=== PATIENT | female | born 1980 | race Caucasian/White ===

== ENCOUNTER 2020-05-22 17:32 | Emergency (ER) | payer MEDICAID ==
[2020-05-22 18:54] VITALS: BP 129/71; PULSE 69
--- NOTE | 2020-05-26 11:54 | EDM.PDOC ---
ED HPI GENERAL MEDICAL PROBLEM - General Chief Complaint: [employer] Problem Stated Complaint: POSSIBLE MISCARRIAGE Time Seen by Provider: 05/22/20 17:35 Source of Information: Reports: Patient History Limitations: Reports: No Limitations - History of Present Illness INITIAL COMMENTS - FREE TEXT/NARRATIVE: I did not see or evaluate this patient lower abdomen Pain Score (Numeric/FACES): 3 - Related Data Allergies Allergy/AdvReac Type Severity Reaction Status Date / Time meperidine HCl [From Demerol] Allergy Fever Verified 05/22/20 18:55 naproxen Allergy Rash Verified 05/22/20 18:55 sumatriptan [From Imitrex] Allergy Anaphylactic Verified 05/22/20 18:55 Shock sumatriptan succinate Allergy Anaphylactic Verified 05/22/20 18:55 [From Imitrex] Shock Home Meds: Home Meds Sertraline HCl [Zoloft] 200 mg PO BEDTIME 04/11/14 [History] Buprenorphine HCl/Naloxone HCl [Suboxone 4 mg-1 mg Sl Film] 05/22/20 [History] Past Medical History - Past Health History Medical/Surgical History: Denies Medical/Surgical History Other HEENT History: Bad teeth Other Respiratory History: Reports 17 yr history of smoking cigarettes, current use 1/2 pack per day Other Gastrointestinal History: Heartburn in late treat with chewable TUMS 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- section and exploratory laproscopic Other Musculoskeletal History: Chronic low back pain, "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" Psychiatric History: Reports: Addiction Other Psychiatric History: Dependence on pain medications/opiates Other Dermatologic History: Excision of area to back 'melanoma' age 11 yrs - Infectious Disease History Infectious Disease History: Reports: Chicken Pox - Past Surgical History Other HEENT Surgeries/Procedures: T & A age 7-8 yrs Female Surgical History: Reports: Section Other Female Surgeries/Procedures: Cryo therapy of cervix, Exploratory Laparoscopic surgery and 'ended up with incision", could not report what was done with this surgery - 3 yrs ago Social & Family History - Family History Family Medical History: Noncontributory - Tobacco Use Smoking Status *Q: Current Every Day Smoker Years of Tobacco use: 17 Packs/Tins Daily: 0.5 - Recreational Drug Use Recreational Drug Use: No ED ROS GENERAL - Review of Systems Review Of Systems: See Below (I did not see/evaluate patient) ED EXAM, GENERAL - Physical Exam Exam: See Below (I did not see/evaluate patient) Course - Vital Signs Last Recorded V/S: Last Vital Signs Temp 97.7 F 05/22/20 18:51 Pulse 69 05/22/20 18:51 Resp 18 05/22/20 18:51 BP 129/71 05/22/20 18:51 Pulse Ox 92 L 05/22/20 18:51 - Orders/Labs/Meds Labs: Laboratory Tests 05/22/20 05/22/20 Range/Units 18:18 18:18 Urine Color BROWN Urine Appearance CLOUDY Urine pH 7.0 (5.0-8.0) Ur Specific [place] 1.025 (1.001-1.035) Urine Protein 30 H (NEGATIVE) mg/dL Urine Glucose (UA) NEGATIVE (NEGATIVE) mg/dL Urine Ketones NEGATIVE (NEGATIVE) mg/dL Urine Occult Blood LARGE H (NEGATIVE) Urine Nitrite NEGATIVE (NEGATIVE) Urine Bilirubin NEGATIVE (NEGATIVE) Urine Urobilinogen 1.0 (<2.0) EU/dL Ur Leukocyte Esterase NEGATIVE (NEGATIVE) Urine RBC TOO NUMEROUS TO CT H (0-2/HPF) Urine WBC 1-2 (0-5/HPF) Ur Epithelial Cells FEW (NONE-FEW) Urine Bacteria FEW (NEGATIVE) Urine Mucus LIGHT (NONE-MOD) Urine HCG, Qual NEGATIVE (NEGATIVE) Departure - Departure Time of Disposition: 11:53 Disposition: Against Medical Advice 07 Clinical Impression: Left against medical advice - Discharge Information Referrals: Moisés Mars DO [Primary Care Provider] - Forms: ED Department Discharge Additional Instructions: I did not see/evaluate patient Sepsis Event Note (ED) - Evaluation Sepsis Screening Result: No Definite Risk
== END 2020-05-22 20:09 | disposition left against medical advice (07) ==
LOC: MW.ED 17:32
DX: R10.30 Lower abdominal pain, unspecified (principal); Z53.20 Procedure and treatment not carried out because of patient's decision for unspecified reasons; F17.210 Nicotine dependence, cigarettes, uncomplicated; Z88.8 Allergy status to other drugs, medicaments and biological substances; Z88.5 Allergy status to narcotic agent
CPT/HCPCS: 81001; 81025; 99284

== ENCOUNTER 2021-03-03 02:50 | Observation (INO) | payer MEDICAID ==
[2021-03-03] MEDS ORDERED: Sodium Chloride 0.9% 2.5 ML Syringe FLUSH PRN (02:52)
[2021-03-03] MEDS ORDERED: Sodium Chloride 0.9% 10 ML Syringe FLUSH PRN (02:52)
[2021-03-03] MEDS ORDERED: Tranexamic Acid 1,000 MG in Sodium Chloride 0.9% 100 ML IV ONE (03:03)
--- NOTE | 2021-03-03 03:03 | EDM.PDOC ---
ED HPI GENERAL MEDICAL PROBLEM - General Chief Complaint: Abdominal Pain Stated Complaint: POSSIBLE MISCARRIAGE Time Seen by Provider: 03/03/21 02:52 Source of Information: Reports: Patient History Limitations: Reports: No Limitations - History of Present Illness INITIAL COMMENTS - FREE TEXT/NARRATIVE: 40-year-old female presents for heavy vaginal bleeding. Patient is uncertain if she is and notes that her last menstrual cycle was January 19 but she does have a history of irregular menses. She has been 7 times and has 3 children. She notes that symptoms started this evening with gushing bright red blood per vagina. She feels weak, dizzy, lightheaded. She denies any associated abdominal pain. EMS reports that PD on scene thinks that they saw a fetus in the toilet. Patient reports nausea but no vomiting. She did get 1 g of TXA by EMS. She also got IM Zofran. - Related Data Allergies Allergy/AdvReac Type Severity Reaction Status Date / Time codeine Allergy Mild Nausea Verified 03/03/21 02:53 meperidine HCl [From Demerol] Allergy Fever Verified 05/22/20 18:55 naproxen Allergy Rash Verified 05/22/20 18:55 sumatriptan [From Imitrex] Allergy Anaphylactic Verified 05/22/20 18:55 Shock sumatriptan succinate Allergy Anaphylactic Verified 05/22/20 18:55 [From Imitrex] Shock Home Meds: Home Meds Sertraline HCl [Zoloft] 200 mg PO BEDTIME 04/11/14 [History] Buprenorphine HCl/Naloxone HCl [Suboxone 4 mg-1 mg Sl Film] 05/22/20 [History] Past Medical History - Past Health History Medical/Surgical History: Denies Medical/Surgical History Other HEENT History: Bad teeth Other Respiratory History: Reports 17 yr history of smoking cigarettes, current use 1/2 pack per day Other Gastrointestinal History: Heartburn in late treat with chewable TUMS 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: C- section and exploratory laproscopic Other Musculoskeletal History: Chronic low back pain, "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" Psychiatric History: Reports: Addiction Other Psychiatric History: Dependence on pain medications/opiates Other Dermatologic History: Excision of area to back 'melanoma' age 11 yrs - Infectious Disease History Infectious Disease History: Reports: Chicken Pox - Past Surgical History Other HEENT Surgeries/Procedures: T & A age 7-8 yrs Female Surgical History: Reports: Section Other Female Surgeries/Procedures: Cryo therapy of cervix, Exploratory Laparoscopic surgery and 'ended up with incision", could not report what was done with this surgery - 3 yrs ago Social & Family History - Family History Family Medical History: No Pertinent Family History ED ROS GENERAL - Review of Systems Review Of Systems: Comprehensive ROS is negative, except as noted in HPI. ED EXAM, GENERAL - Physical Exam Exam: See Below Exam Limited By: No Limitations General Appearance: Alert, WD/WN, No Apparent Distress Ears: Hearing Grossly Normal Throat/Mouth: Normal Voice, No Airway Compromise Head: Atraumatic, Normocephalic Neck: Normal Inspection Respiratory/Chest: No Respiratory Distress, Lungs Clear, Normal Breath Sounds, No Accessory Muscle Use Cardiovascular: Normal Peripheral Pulses, Regular Rate, Rhythm GI/Abdominal: Soft, Non-Tender Extremities: Normal Inspection Neurological: Alert, Oriented, Normal Cognition Psychiatric: Normal Affect, Normal Mood Skin Exam: Warm, Dry, Intact, Other (pale) Course - Vital Signs Last Recorded V/S: Last Vital Signs Temp 97.5 F 03/03/21 02:53 Pulse 96 03/03/21 03:50 Resp 18 03/03/21 03:50 BP 101/60 03/03/21 03:50 Pulse Ox 95 03/03/21 03:50 - Orders/Labs/Meds Orders: Active Orders 24 hr Category Date Time Status Verify Patient Consent Obtain [RC] ASDIRECTED Care 03/03/21 03:37 Active OB 1st Tri Sgl 1st Gest [US] Stat Exams 03/03/21 03:08 Ordered COMPREHENSIVE METABOLIC PN,CMP [CHEM] Stat Lab 03/03/21 02:58 Received CORONAVIRUS COVID-19 DANA [MOLEC] Stat Lab 03/03/21 03:20 Received DRUG SCREEN, URINE [URCHEM] Stat Lab 03/03/21 03:55 Ordered HCG QUANTITATIVE [CHEM] Stat Lab 03/03/21 02:58 Received RED BLOOD CELLS LP [BBK] Stat Lab 03/03/21 03:02 Results TYPE AND SCREEN [BBK] Stat Lab 03/03/21 03:02 Results UA W/HORACE RFLX IF INDICATED [URIN] Stat Lab 03/03/21 03:34 Ordered Sodium Chloride 0.9% [Normal Saline] 1,000 ml Med 03/03/21 03:21 Active IV .Bolus Sodium Chloride 0.9% [Saline Flush] Med 03/03/21 02:52 Active 10 ml FLUSH ASDIRECTED PRN Sodium Chloride 0.9% [Saline Flush] Med 03/03/21 02:52 Active 2.5 ml FLUSH ASDIRECTED PRN Tranexamic Acid [Cyklokapron] 1,000 mg Med 03/03/21 03:03 Active Sodium Chloride 0.9% [Normal Saline] 100 ml IV ONETIME Saline Lock Insert [OM.PC] Stat Ot 03/03/21 02:52 Ordered Transfuse Red Blood Cells [COMM] Stat Ot 03/03/21 03:36 Ordered Medication Orders Tranexamic Acid 1,000 mg/ (Sodium Chloride) 110 mls @ 12.5 mls/hr IV ONETIME ONE Stop: 03/03/21 11:50 Last Admin: 03/03/21 03:18 Dose: 12.5 mls/hr Documented by: COOPER Sodium Chloride (Normal Saline) 1,000 mls @ 999 mls/hr IV .Bolus ONE Stop: 03/03/21 04:21 Last Admin: 03/03/21 03:22 Dose: 999 mls/hr Documented by: COOPER Sodium Chloride (Sodium Chloride 0.9% 10 Ml Syringe) 10 ml FLUSH ASDIRECTED PRN PRN Reason: Keep Vein Open Sodium Chloride (Sodium Chloride 0.9% 2.5 Ml Syringe) 2.5 ml FLUSH ASDIRECTED PRN PRN Reason: Keep Vein Open Labs: Laboratory Tests 03/03/21 03/03/21 03/03/21 Range/Units 02:40 02:58 02:58 WBC 18.32 H (4.0-11.0) K/uL RBC 3.32 L (4.30-5.90) M/uL Hgb 9.0 L (12.0-16.0) g/dL Hct 27.6 L (36.0-46.0) % MCV 83.1 (80.0-98.0) fL MCH 27.1 (27.0-32.0) pg MCHC 32.6 (31.0-37.0) g/dL RDW Std Deviation 43.6 (28.0-62.0) fl RDW Coeff of Dalia 14 (11.0-15.0) % Plt Count 344 (150-400) K/uL MPV 10.10 (7.40-12.00) fL Neut % (Auto) 82.5 H (48.0-80.0) % Lymph % (Auto) 10.4 L (16.0-40.0) % [place] % (Auto) 6.4 (0.0-15.0) % Eos % (Auto) 0.5 (0.0-7.0) % Baso % (Auto) 0.2 (0.0-1.5) % Neut # (Auto) 15.1 H (1.4-5.7) K/uL Lymph # (Auto) 1.9 (0.6-2.4) K/uL [place] # (Auto) 1.2 H (0.0-0.8) K/uL Eos # (Auto) 0.1 (0.0-0.7) K/uL Baso # (Auto) 0.0 (0.0-0.1) K/uL Nucleated RBC % 0.0 /100WBC Nucleated RBCs # 0 K/uL INR 1.02 APTT 20.1 (18.6-31.3) SEC Urine Color Cancelled Urine Appearance Cancelled Urine pH Cancelled Ur Specific [place] Cancelled Urine Protein Cancelled Urine Glucose (UA) Cancelled Urine Ketones Cancelled Urine Occult Blood Cancelled Urine Nitrite Cancelled Urine Bilirubin Cancelled Urine Ictotest Cancelled Urine Urobilinogen Cancelled Ur Leukocyte Esterase Cancelled Blood Type Antibody Screen Crossmatch 03/03/21 Range/Units 03:02 WBC (4.0-11.0) K/uL RBC (4.30-5.90) M/uL Hgb (12.0-16.0) g/dL Hct (36.0-46.0) % MCV (80.0-98.0) fL MCH (27.0-32.0) pg MCHC (31.0-37.0) g/dL RDW Std Deviation (28.0-62.0) fl RDW Coeff of Dalia (11.0-15.0) % Plt Count (150-400) K/uL MPV (7.40-12.00) fL Neut % (Auto) (48.0-80.0) % Lymph % (Auto) (16.0-40.0) % [place] % (Auto) (0.0-15.0) % Eos % (Auto) (0.0-7.0) % Baso % (Auto) (0.0-1.5) % Neut # (Auto) (1.4-5.7) K/uL Lymph # (Auto) (0.6-2.4) K/uL [place] # (Auto) (0.0-0.8) K/uL Eos # (Auto) (0.0-0.7) K/uL Baso # (Auto) (0.0-0.1) K/uL Nucleated RBC % /100WBC Nucleated RBCs # K/uL INR APTT (18.6-31.3) SEC Urine Color Urine Appearance Urine pH Ur Specific [place] Urine Protein Urine Glucose (UA) Urine Ketones Urine Occult Blood Urine Nitrite Urine Bilirubin Urine Ictotest Urine Urobilinogen Ur Leukocyte Esterase Blood Type O POSITIVE Antibody Screen NEGATIVE Crossmatch See Detail Meds: Medications Generic Name Dose Route Start Last Admin Trade Name Freq PRN Reason Stop Dose Admin Tranexamic Acid 1,000 mg/ 110 mls @ 12.5 mls/hr 03/03/21 03:03 03/03/21 03:18 Sodium Chloride IV 03/03/21 11:50 12.5 mls/hr ONETIME ONE Administration Sodium Chloride 1,000 mls @ 999 mls/hr 03/03/21 03:21 03/03/21 03:22 Normal Saline IV 03/03/21 04:21 999 mls/hr .Bolus ONE Administration Sodium Chloride 10 ml 03/03/21 02:52 Sodium Chloride 0.9% 10 Ml Syringe FLUSH ASDIRECTED PRN Keep Vein Open Sodium Chloride 2.5 ml 03/03/21 02:52 Sodium Chloride 0.9% 2.5 Ml Syringe FLUSH ASDIRECTED PRN Keep Vein Open Discontinued Medications Generic Name Dose Route Start Last Admin Trade Name Freq PRN Reason Stop Dose Admin Methylergonovine Maleate 0.2 mg 03/03/21 03:44 03/03/21 03:48 Methylergonovine 0.2 Mg/1 Ml Amp IM 03/03/21 03:45 0.2 mg STAT STA Administration Methylergonovine Maleate Confirm 03/03/21 03:45 03/03/21 03:48 Methylergonovine 0.2 Mg/1 Ml Amp Administered 03/03/21 03:46 Not Given Dose 0.2 mg .ROUTE .STK-MED ONE Tranexamic Acid Confirm 03/03/21 03:11 03/03/21 03:20 Tranexamic Acid 1,000 Mg/10 Ml Amp Administered 03/03/21 03:12 Not Given Dose 1,000 mg .ROUTE .STK-MED ONE - Re-Assessments/Exams Free Text/Narrative Re-Assessment/Exam: 03/03/21 03:05 Patient symptoms are most consistent with miscarriage with heavy vaginal bleeding. Will give TXA drip following the bolus given by EMS. Will check beta hCG level and order ultrasound. 03/03/21 03:28 EMS second crew did bring in a fetus weighing approximately 1-kg which they found in the toilet. I also spoke with Dr. Farmer who will see patient in ER. She would like ultrasound called in 03/03/21 03:38 Heart rate is 108, blood pressure is lower than arrival 90s over 50s. Patient is continuing to hemorrhage so 2 units of blood have been ordered. 03/03/21 03:55 Dr. Armenta has evaluated patient and believes patient needs operative intervention. Patient is agreeable with plan. Blood is ready in about to be hung. Patient did get Methergine IM. Estimated age roughly 21 to 22 weeks, male. This has been reported to [facility] by powerhouse engineer. Departure - Departure Time of Disposition: 03:57 Disposition: Admitted As Inpatient 68 Condition: Fair Clinical Impression: hemorrhage Qualifiers: hemorrhage type: unspecified Qualified Code(s): O72.1 - Other immediate hemorrhage - Discharge Information Referrals: PCP,None [Primary Care Provider] - Forms: ED Department Discharge Critical Care Note - Critical Care Note Total Time (mins): 40 Sepsis Event Note (ED) - Evaluation Sepsis Screening Result: No Definite Risk - Focused Exam Vital Signs: Vital Signs Temp Pulse Resp BP Pulse Ox 03/03/21 03:50 96 18 101/60 95 03/03/21 03:35 93 18 99/56 L 95 03/03/21 03:20 94 18 97/49 L 95 03/03/21 02:53 97.5 F 97 20 102/63 96 - My Orders Last 24 Hours: My Active Orders 03/03/21 02:52 Sodium Chloride 0.9% [Saline Flush] 10 ml FLUSH ASDIRECTED PRN Sodium Chloride 0.9% [Saline Flush] 2.5 ml FLUSH ASDIRECTED PRN Saline Lock Insert [OM.PC] Stat 03/03/21 02:58 COMPREHENSIVE METABOLIC PN,CMP [CHEM] Stat HCG QUANTITATIVE [CHEM] Stat 03/03/21 03:02 RED BLOOD CELLS LP [BBK] Stat TYPE AND SCREEN [BBK] Stat 03/03/21 03:03 Tranexamic Acid [Cyklokapron] 1,000 mg Sodium Chloride 0.9% [Normal Saline] 100 ml IV ONETIME 03/03/21 03:08 OB 1st Tri Sgl 1st Gest [US] Stat 03/03/21 03:20 CORONAVIRUS COVID-19 DANA [MOLEC] Stat 03/03/21 03:21 Sodium Chloride 0.9% [Normal Saline] 1,000 ml IV .Bolus 03/03/21 03:34 UA W/HORACE RFLX IF INDICATED [URIN] Stat 03/03/21 03:36 Transfuse Red Blood Cells [COMM] Stat 03/03/21 03:37 Verify Patient Consent Obtain [RC] ASDIRECTED 03/03/21 03:55 DRUG SCREEN, URINE [URCHEM] Stat - Assessment/Plan Last 24 Hours: My Active Orders 03/03/21 02:52 Sodium Chloride 0.9% [Saline Flush] 10 ml FLUSH ASDIRECTED PRN Sodium Chloride 0.9% [Saline Flush] 2.5 ml FLUSH ASDIRECTED PRN Saline Lock Insert [OM.PC] Stat 03/03/21 02:58 COMPREHENSIVE METABOLIC PN,CMP [CHEM] Stat HCG QUANTITATIVE [CHEM] Stat 03/03/21 03:02 RED BLOOD CELLS LP [BBK] Stat TYPE AND SCREEN [BBK] Stat 03/03/21 03:03 Tranexamic Acid [Cyklokapron] 1,000 mg Sodium Chloride 0.9% [Normal Saline] 100 ml IV ONETIME 03/03/21 03:08 OB 1st Tri Sgl 1st Gest [US] Stat 03/03/21 03:20 CORONAVIRUS COVID-19 DANA [MOLEC] Stat 03/03/21 03:21 Sodium Chloride 0.9% [Normal Saline] 1,000 ml IV .Bolus 03/03/21 03:34 UA W/HORACE RFLX IF INDICATED [URIN] Stat 03/03/21 03:36 Transfuse Red Blood Cells [COMM] Stat 03/03/21 03:37 Verify Patient Consent Obtain [RC] ASDIRECTED 03/03/21 03:55 DRUG SCREEN, URINE [URCHEM] Stat
[2021-03-03] MEDS ORDERED: Sodium Chloride 0.9% 1,000 ML IV ONE (03:21)
[2021-03-03] MEDS ORDERED: Methylergonovine 0.2 MG/1 ML Amp IM STA (03:44)
[2021-03-03] MEDS ORDERED: Methylergonovine 0.2 MG/1 ML Amp ONE (03:45)
[2021-03-03 03:51] LABS: BLOOD UREA NITROGEN,BUN 8 mg/dL (7.0-18.0); CARBON DIOXIDE,CO2 27.3 mmol/L (21.0-32.0); CHLORIDE,CL 100 mmol/L (98-107); GLUCOSE RANDOM 166 mg/dL (74-106); POTASSIUM,K 3.1 mmol/L (3.5-5.1); SODIUM,NA 137 mmol/L (136-145)
--- NOTE | 2021-03-03 04:10 | PCM.HP.2 ---
H&P History of Present Illness - General Date of Service: 03/03/21 Admit Problem/Dx: Admission Diagnosis/Problem Admission Diagnosis/Problem hemorrhage Source of Information: Patient History Limitations: Reports: No Limitations - History of Present Illness Initial Comments - Free Text/Narative: 40 year old female was transferred to [facility] ED this morning due to heavy vaginal bleeding after miscarriage. Patient unsure of LMP, states possibly in early December. Has not taken a home test or establish care with an OBGYN. States that she started bleeding at about 0100 this morning and called EMS shortly thereafter as the bleeding increased. Upon arrival, EMS noted a stillborn infant within the toilet and transferred both the patient and to the hospital. Bleeding has continued since arrival to the ED. Hgb 9.0 and bHCG pending. Speculum exam per ED provider was difficult due to heavy vaginal bleeding. Bed side ultrasound revealed probable retained placenta. Patient denies fever/chills, nausea/vomiting or pelvic pain. Patient does have a remote history of drug use and has been on Suboxone for about 10 years. OBGYN history includes ETOP, SAB, , CS, CS, SAB and this current miscarriage. - Related Data Allergies/Adverse Reactions: Allergies Allergy/AdvReac Type Severity Reaction Status Date / Time codeine Allergy Mild Nausea Verified 03/03/21 02:53 meperidine HCl [From Demerol] Allergy Fever Verified 05/22/20 18:55 naproxen Allergy Rash Verified 05/22/20 18:55 sumatriptan [From Imitrex] Allergy Anaphylactic Verified 05/22/20 18:55 Shock sumatriptan succinate Allergy Anaphylactic Verified 05/22/20 18:55 [From Imitrex] Shock Home Medications: Home Meds Sertraline HCl [Zoloft] 200 mg PO BEDTIME 04/11/14 [History] Buprenorphine HCl/Naloxone HCl [Suboxone 4 mg-1 mg Sl Film] 05/22/20 [History] Past Medical History - Past Health History Medical/Surgical History: Denies Medical/Surgical History Other HEENT History: Bad teeth Other Respiratory History: Reports 17 yr history of smoking cigarettes, current use 1/2 pack per day Other Gastrointestinal History: Heartburn in late treat with chewable TUMS Other OB/BYN History: C- section and exploratory laproscopic Other Musculoskeletal History: Chronic low back pain, "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" Psychiatric History: Reports: Addiction Other Psychiatric History: Dependence on pain medications/opiates Other Dermatologic History: Excision of area to back 'melanoma' age 11 yrs - Infectious Disease History Infectious Disease History: Reports: Chicken Pox - Past Surgical History Other HEENT Surgeries/Procedures: T & A age 7-8 yrs Female Surgical History: Reports: Section Other Female Surgeries/Procedures: Cryo therapy of cervix, Exploratory Laparoscopic surgery and 'ended up with incision", could not report what was done with this surgery - 3 yrs ago Social & Family History - Family History Family Medical History: No Pertinent Family History - Caffeine Use Caffeine Use: Reports: Energy Drinks, Soda - Recreational Drug Use Recreational Drug Use: No H&P Review of Systems - Review of Systems: Review Of Systems: See Below General: Reports: Fatigue HEENT: Reports: No Symptoms Pulmonary: Reports: No Symptoms Cardiovascular: Reports: No Symptoms Gastrointestinal: Reports: No Symptoms Genitourinary: Reports: Abnormal Menses Musculoskeletal: Reports: No Symptoms Skin: Reports: No Symptoms Psychiatric: Reports: No Symptoms Neurological: Reports: No Symptoms Hematologic/Lymphatic: Reports: No Symptoms Immunologic: Reports: No Symptoms Exam - Exam Exam: See Below - Vital Signs Vital Signs: Last Vital Signs Temp 97.5 F 03/03/21 02:53 Pulse 96 03/03/21 03:50 Resp 18 03/03/21 03:50 BP 101/60 03/03/21 03:50 Pulse Ox 95 03/03/21 03:50 Weight: 215 lb - Exam General: Alert Lungs: Normal Respiratory Effort Cardiovascular: Regular Rate GI/Abdominal Exam: Soft, Non-Tender (Female) Exam: Fundal Height (difficult to assess due to body habitus), Vaginal Bleeding Extremities: Normal Range of Motion, Non-Tender, No Pedal Edema Skin: Warm, Dry, Intact, Other (pale) Psychiatric: Normal Mood - Patient Data Lab Results Last 24 hrs: Laboratory Results - last 24 hr 03/03/21 03/03/21 03/03/21 Range/Units 02:40 02:58 02:58 WBC 18.32 H (4.0-11.0) K/uL RBC 3.32 L (4.30-5.90) M/uL Hgb 9.0 L (12.0-16.0) g/dL Hct 27.6 L (36.0-46.0) % MCV 83.1 (80.0-98.0) fL MCH 27.1 (27.0-32.0) pg MCHC 32.6 (31.0-37.0) g/dL RDW Std Deviation 43.6 (28.0-62.0) fl RDW Coeff of Dalia 14 (11.0-15.0) % Plt Count 344 (150-400) K/uL MPV 10.10 (7.40-12.00) fL Neut % (Auto) 82.5 H (48.0-80.0) % Lymph % (Auto) 10.4 L (16.0-40.0) % [place] % (Auto) 6.4 (0.0-15.0) % Eos % (Auto) 0.5 (0.0-7.0) % Baso % (Auto) 0.2 (0.0-1.5) % Neut # (Auto) 15.1 H (1.4-5.7) K/uL Lymph # (Auto) 1.9 (0.6-2.4) K/uL [place] # (Auto) 1.2 H (0.0-0.8) K/uL Eos # (Auto) 0.1 (0.0-0.7) K/uL Baso # (Auto) 0.0 (0.0-0.1) K/uL Nucleated RBC % 0.0 /100WBC Nucleated RBCs # 0 K/uL INR 1.02 APTT 20.1 (18.6-31.3) SEC Sodium (136-145) mmol/L Potassium (3.5-5.1) mmol/L Chloride (98-107) mmol/L Carbon Dioxide (21.0-32.0) mmol/L BUN (7.0-18.0) mg/dL Creatinine (0.6-1.0) mg/dL Est Cr Clr Drug Dosing mL/min Estimated GFR (MDRD) ml/min Glucose (74-106) mg/dL Calcium (8.5-10.1) mg/dL Total Bilirubin (0.2-1.0) mg/dL AST (15-37) IU/L ALT (14-63) IU/L Alkaline Phosphatase (46-116) U/L Total Protein (6.4-8.2) g/dL Albumin (3.4-5.0) g/dL Globulin (2.6-4.0) g/dL Albumin/Globulin Ratio (0.9-1.6) HCG, Quant mIU/mL Urine Color Cancelled Urine Appearance Cancelled Urine pH Cancelled Ur Specific [place] Cancelled Urine Protein Cancelled Urine Glucose (UA) Cancelled Urine Ketones Cancelled Urine Occult Blood Cancelled Urine Nitrite Cancelled Urine Bilirubin Cancelled Urine Ictotest Cancelled Urine Urobilinogen Cancelled Ur Leukocyte Esterase Cancelled Blood Type Antibody Screen Crossmatch 03/03/21 03/03/21 Range/Units 02:58 03:02 WBC (4.0-11.0) K/uL RBC (4.30-5.90) M/uL Hgb (12.0-16.0) g/dL Hct (36.0-46.0) % MCV (80.0-98.0) fL MCH (27.0-32.0) pg MCHC (31.0-37.0) g/dL RDW Std Deviation (28.0-62.0) fl RDW Coeff of Dalia (11.0-15.0) % Plt Count (150-400) K/uL MPV (7.40-12.00) fL Neut % (Auto) (48.0-80.0) % Lymph % (Auto) (16.0-40.0) % [place] % (Auto) (0.0-15.0) % Eos % (Auto) (0.0-7.0) % Baso % (Auto) (0.0-1.5) % Neut # (Auto) (1.4-5.7) K/uL Lymph # (Auto) (0.6-2.4) K/uL [place] # (Auto) (0.0-0.8) K/uL Eos # (Auto) (0.0-0.7) K/uL Baso # (Auto) (0.0-0.1) K/uL Nucleated RBC % /100WBC Nucleated RBCs # K/uL INR APTT (18.6-31.3) SEC Sodium 137 (136-145) mmol/L Potassium 3.1 L (3.5-5.1) mmol/L Chloride 100 (98-107) mmol/L Carbon Dioxide 27.3 (21.0-32.0) mmol/L BUN 8 (7.0-18.0) mg/dL Creatinine 0.7 (0.6-1.0) mg/dL Est Cr Clr Drug Dosing 86.18 mL/min Estimated GFR (MDRD) > 60.0 ml/min Glucose 166 H (74-106) mg/dL Calcium 7.9 L (8.5-10.1) mg/dL Total Bilirubin 0.3 (0.2-1.0) mg/dL AST 17 (15-37) IU/L ALT 17 (14-63) IU/L Alkaline Phosphatase 68 (46-116) U/L Total Protein 6.0 L (6.4-8.2) g/dL Albumin 2.4 L (3.4-5.0) g/dL Globulin 3.6 (2.6-4.0) g/dL Albumin/Globulin Ratio 0.7 L (0.9-1.6) HCG, Quant 8070.0 mIU/mL Urine Color Urine Appearance Urine pH Ur Specific [place] Urine Protein Urine Glucose (UA) Urine Ketones Urine Occult Blood Urine Nitrite Urine Bilirubin Urine Ictotest Urine Urobilinogen Ur Leukocyte Esterase Blood Type O POSITIVE Antibody Screen NEGATIVE Crossmatch See Detail Result Diagrams: 03/03/21 02:58 03/03/21 02:58 Sepsis Event Note - Evaluation Sepsis Screening Result: No Definite Risk - Focused Exam Vital Signs: Vital Signs Temp Pulse Resp BP Pulse Ox 03/03/21 03:50 96 18 101/60 95 03/03/21 03:35 93 18 99/56 L 95 03/03/21 03:20 94 18 97/49 L 95 03/03/21 02:53 97.5 F 97 20 102/63 96 Problem List Initiated/Reviewed/Updated: Yes Orders Last 24hrs: Active Orders 24 hr Category Date Time Status Patient Status [ADT] Routine ADT 03/03/21 03:58 Active Verify Patient Consent Obtain [RC] ASDIRECTED Care 03/03/21 03:37 Active OB 1st Tri Sgl 1st Gest [US] Stat Exams 03/03/21 03:08 Ordered CORONAVIRUS COVID-19 DANA [MOLEC] Stat Lab 03/03/21 03:20 Received DRUG SCREEN, URINE [URCHEM] Stat Lab 03/03/21 03:55 Ordered RED BLOOD CELLS LP [BBK] Stat Lab 03/03/21 03:02 Results TYPE AND SCREEN [BBK] Stat Lab 03/03/21 03:02 Results UA W/HORACE RFLX IF INDICATED [URIN] Stat Lab 03/03/21 03:34 Ordered Sodium Chloride 0.9% [Normal Saline] 1,000 ml Med 03/03/21 03:21 Active IV .Bolus Sodium Chloride 0.9% [Saline Flush] Med 03/03/21 02:52 Active 10 ml FLUSH ASDIRECTED PRN Sodium Chloride 0.9% [Saline Flush] Med 03/03/21 02:52 Active 2.5 ml FLUSH ASDIRECTED PRN Tranexamic Acid [Cyklokapron] 1,000 mg Med 03/03/21 03:03 Active Sodium Chloride 0.9% [Normal Saline] 100 ml IV ONETIME Saline Lock Insert [OM.PC] Stat Oth 03/03/21 02:52 Ordered Transfuse Red Blood Cells [COMM] Stat Oth 03/03/21 03:36 Ordered Medication Orders Tranexamic Acid 1,000 mg/ (Sodium Chloride) 110 mls @ 12.5 mls/hr IV ONETIME ONE Stop: 03/03/21 11:50 Last Admin: 03/03/21 03:18 Dose: 12.5 mls/hr Documented by: COOPER Sodium Chloride (Normal Saline) 1,000 mls @ 999 mls/hr IV .Bolus ONE Stop: 03/03/21 04:21 Last Admin: 03/03/21 03:22 Dose: 999 mls/hr Documented by: COOPER Sodium Chloride (Sodium Chloride 0.9% 10 Ml Syringe) 10 ml FLUSH ASDIRECTED PRN PRN Reason: Keep Vein Open Sodium Chloride (Sodium Chloride 0.9% 2.5 Ml Syringe) 2.5 ml FLUSH ASDIRECTED PRN PRN Reason: Keep Vein Open Assessment/Plan Comment:: 40 year old female s/p probable second trimester stillbirth with hemorrhage * Stillborn evaluated, estimated 21 weeks gestation * 2 IV sites on patient upon arrival to the ED, IVF replacement ongoing. 2u pRBC typed and crossed. * IV TXA and IM methergine given, IM Pitocin ordered * Preliminary ultrasound with retained placenta * COVID-19 negative * UDS pending * Due to ongoing heavy vaginal bleeding, recommended proceed with suction dilation and curettage. Risks of procedure reviewed including infection, bleeding with rare need for hysterectomy, uterine perforation with need for additional procedures and remote risk of anesthesia complications including . Questions elicited and answered. Anesthesia and OR team notified of need for urgent suction dilation and curettage.
[2021-03-03] MEDS ORDERED: Oxytocin 10 Units/1 ML SDV IM ONE (04:14)
[2021-03-03] MEDS ORDERED: fentaNYL 100 MCG/2 ML SDV ONE (04:29)
[2021-03-03] MEDS ORDERED: Midazolam 1 MG/ML 2 ML SDV ONE (04:29)
[2021-03-03] MEDS ORDERED: Lidocaine 2% 5 ML SDV ONE (04:30)
[2021-03-03] MEDS ORDERED: Ondansetron 4 MG/2 ML SDV ONE (04:30)
[2021-03-03] MEDS ORDERED: Rocuronium Bromide 50 MG/5 ML Syringe ONE (04:30)
[2021-03-03] MEDS ORDERED: Sugammadex Sodium 200 MG/2 ML VIAL ONE (04:30)
[2021-03-03] MEDS ORDERED: Etomidate 2 MG/ML 20 ML SDV IVPUSH ONE (04:30)
[2021-03-03] MEDS ORDERED: Glycopyrrolate 0.2 MG/ML SDV ONE (04:30)
[2021-03-03] MEDS ORDERED: Sodium Chloride 0.9% 20 ML ONE (04:33)
[2021-03-03] MEDS ORDERED: ceFAZolin 1 GM Vial ONE (04:33)
[2021-03-03] MEDS ORDERED: Albumin 5% 250 ML ONE (04:33)
[2021-03-03] MEDS ORDERED: Misoprostol 200 MCG Tab ONE (04:35)
[2021-03-03] MEDS ORDERED: Carboprost Tromethamine 250 MCG/1 ML Amp ONE (04:36)
[2021-03-03] MEDS ORDERED: fentaNYL 100 MCG/2 ML SDV IVPUSH PRN ×2 (05:18→08:00)
[2021-03-03] MEDS ORDERED: Acetaminophen 1,000 MG in Premix Bag 1 BAG IV PRN (05:18)
--- NOTE | 2021-03-03 05:20 | PCM.PREANE ---
Preanesthetic Assessment - Anesthesia/Transfusion/Family Hx Anesthesia History: Prior Anesthesia Without Reaction Other Type of Anesthesia Reaction Comment: Denies any problems in past - Physical Assessment NPO Status Date: 03/03/21 NPO Status Time: 00:05 Vital Signs: Last Vital Signs Temp 97.2 C H 03/03/21 04:25 Pulse 90 03/03/21 04:25 Resp 18 03/03/21 04:25 BP 111/56 L 03/03/21 04:25 Pulse Ox 98 03/03/21 04:25 Height: 1.57 m Weight: 97.522 kg ASA Class: 2E - Lab Values: Laboratory Last Values WBC 18.32 K/uL (4.0-11.0) H 03/03/21 02:58 RBC 3.32 M/uL (4.30-5.90) L 03/03/21 02:58 Hgb 9.0 g/dL (12.0-16.0) L 03/03/21 02:58 Hct 27.6 % (36.0-46.0) L 03/03/21 02:58 MCV 83.1 fL (80.0-98.0) 03/03/21 02:58 MCH 27.1 pg (27.0-32.0) 03/03/21 02:58 MCHC 32.6 g/dL (31.0-37.0) 03/03/21 02:58 RDW Std Deviation 43.6 fl (28.0-62.0) 03/03/21 02:58 RDW Coeff of Dlaia 14 % (11.0-15.0) 03/03/21 02:58 Plt Count 344 K/uL (150-400) 03/03/21 02:58 MPV 10.10 fL (7.40-12.00) 03/03/21 02:58 Neut % (Auto) 82.5 % (48.0-80.0) H 03/03/21 02:58 Lymph % (Auto) 10.4 % (16.0-40.0) L 03/03/21 02:58 [place] % (Auto) 6.4 % (0.0-15.0) 03/03/21 02:58 Eos % (Auto) 0.5 % (0.0-7.0) 03/03/21 02:58 Baso % (Auto) 0.2 % (0.0-1.5) 03/03/21 02:58 Neut # (Auto) 15.1 K/uL (1.4-5.7) H 03/03/21 02:58 Lymph # (Auto) 1.9 K/uL (0.6-2.4) 03/03/21 02:58 [place] # (Auto) 1.2 K/uL (0.0-0.8) H 03/03/21 02:58 Eos # (Auto) 0.1 K/uL (0.0-0.7) 03/03/21 02:58 Baso # (Auto) 0.0 K/uL (0.0-0.1) 03/03/21 02:58 Nucleated RBC % 0.0 /100WBC 03/03/21 02:58 Nucleated RBCs # 0 K/uL 03/03/21 02:58 INR 1.02 03/03/21 02:58 APTT 20.1 SEC (18.6-31.3) 03/03/21 02:58 Sodium 137 mmol/L (136-145) 03/03/21 02:58 Potassium 3.1 mmol/L (3.5-5.1) L 03/03/21 02:58 Chloride 100 mmol/L (98-107) 03/03/21 02:58 Carbon Dioxide 27.3 mmol/L (21.0-32.0) 03/03/21 02:58 BUN 8 mg/dL (7.0-18.0) 03/03/21 02:58 Creatinine 0.7 mg/dL (0.6-1.0) 03/03/21 02:58 Est Cr Clr Drug Dosing 86.18 mL/min 03/03/21 02:58 Estimated GFR (MDRD) > 60.0 ml/min 03/03/21 02:58 Glucose 166 mg/dL (74-106) H 03/03/21 02:58 Calcium 7.9 mg/dL (8.5-10.1) L 03/03/21 02:58 Total Bilirubin 0.3 mg/dL (0.2-1.0) 03/03/21 02:58 AST 17 IU/L (15-37) 03/03/21 02:58 ALT 17 IU/L (14-63) 03/03/21 02:58 Alkaline Phosphatase 68 U/L (46-116) 03/03/21 02:58 Total Protein 6.0 g/dL (6.4-8.2) L 03/03/21 02:58 Albumin 2.4 g/dL (3.4-5.0) L 03/03/21 02:58 Globulin 3.6 g/dL (2.6-4.0) 03/03/21 02:58 Albumin/Globulin Ratio 0.7 (0.9-1.6) L 03/03/21 02:58 HCG, Quant 8070.0 mIU/mL 03/03/21 02:58 Urine Color Cancelled 03/03/21 02:40 Urine Appearance Cancelled 03/03/21 02:40 Urine pH Cancelled 03/03/21 02:40 Ur Specific [place] Cancelled 03/03/21 02:40 Urine Protein Cancelled 03/03/21 02:40 Urine Glucose (UA) Cancelled 03/03/21 02:40 Urine Ketones Cancelled 03/03/21 02:40 Urine Occult Blood Cancelled 03/03/21 02:40 Urine Nitrite Cancelled 03/03/21 02:40 Urine Bilirubin Cancelled 03/03/21 02:40 Urine Ictotest Cancelled 03/03/21 02:40 Urine Urobilinogen Cancelled 03/03/21 02:40 Ur Leukocyte Esterase Cancelled 03/03/21 02:40 SARS-CoV-2 RNA (DANA) NEGATIVE (NEGATIVE) 03/03/21 03:20 Blood Type O POSITIVE 03/03/21 03:02 Antibody Screen NEGATIVE 03/03/21 03:02 Crossmatch See Detail 03/03/21 03:02 - Allergies Allergies/Adverse Reactions: Allergies Allergy/AdvReac Type Severity Reaction Status Date / Time codeine Allergy Mild Nausea Verified 03/03/21 02:53 meperidine HCl [From Demerol] Allergy Fever Verified 05/22/20 18:55 naproxen Allergy Rash Verified 05/22/20 18:55 sumatriptan [From Imitrex] Allergy Anaphylactic Verified 05/22/20 18:55 Shock sumatriptan succinate Allergy Anaphylactic Verified 05/22/20 18:55 [From Imitrex] Shock - Acknowledgements Anesthesia Type Planned: General Anesthesia Pt an Appropriate Candidate for the Planned Anesthesia: Yes Alternatives and Risks of Anesthesia Discussed w Pt/Guardian: Yes PreAnesthesia Questionnaire - Past Health History Medical/Surgical History: Denies Medical/Surgical History Other HEENT History: Bad teeth Other Respiratory History: Reports 17 yr history of smoking cigarettes, current use 1/2 pack per day Other Gastrointestinal History: Heartburn in late treat with chewable TUMS Other OB/BYN History: C- section and exploratory laproscopic Other Musculoskeletal History: Chronic low back pain, "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" Psychiatric History: Reports: Addiction Other Psychiatric History: Dependence on pain medications/opiates Other Dermatologic History: Excision of area to back 'melanoma' age 11 yrs - Infectious Disease History Infectious Disease History: Reports: Chicken Pox - Past Surgical History Other HEENT Surgeries/Procedures: T & A age 7-8 yrs Female Surgical History: Reports: Section Other Female Surgeries/Procedures: Cryo therapy of cervix, Exploratory Laparoscopic surgery and 'ended up with incision", could not report what was done with this surgery - 3 yrs ago - SUBSTANCE USE Tobacco Use Within Last Twelve Months: Cigarettes Recreational Drug Use History: No - HOME MEDS Home Medications: Home Meds Sertraline HCl [Zoloft] 200 mg PO BEDTIME 04/11/14 [History] Buprenorphine HCl/Naloxone HCl [Suboxone 4 mg-1 mg Sl Film] 05/22/20 [History] - CURRENT (IN HOUSE) MEDS Current Meds: Current Medications Tranexamic Acid 1,000 mg/ (Sodium Chloride) 110 mls @ 12.5 mls/hr IV ONETIME ONE Stop: 03/03/21 11:50 Last Admin: 03/03/21 03:18 Dose: 12.5 mls/hr Documented by: Sodium Chloride (Sodium Chloride 0.9% 10 Ml Syringe) 10 ml FLUSH ASDIRECTED PRN PRN Reason: Keep Vein Open Sodium Chloride (Sodium Chloride 0.9% 2.5 Ml Syringe) 2.5 ml FLUSH ASDIRECTED PRN PRN Reason: Keep Vein Open Discontinued Medications Carboprost Tromethamine (Carboprost Tromethamine 250 Mcg/1 Ml Amp) Confirm Administered Dose 250 mcg .ROUTE .STK-MED ONE Stop: 03/03/21 04:37 Cefazolin Sodium (Cefazolin 1 Gm Vial) Confirm Administered Dose 2 gm .ROUTE .STK-MED ONE Stop: 03/03/21 04:34 Etomidate (Etomidate 2 Mg/Ml 20 Ml Sdv) Confirm Administered Dose 40 mg IVPUSH .STK-MED ONE Stop: 03/03/21 04:31 Fentanyl (Fentanyl 100 Mcg/2 Ml Sdv) Confirm Administered Dose 100 mcg .ROUTE .STK-MED ONE Stop: 03/03/21 04:30 Glycopyrrolate (Glycopyrrolate 0.2 Mg/Ml Sdv) Confirm Administered Dose 0.2 mg .ROUTE .STK-MED ONE Stop: 03/03/21 04:31 Sodium Chloride (Normal Saline) 1,000 mls @ 999 mls/hr IV .Bolus ONE Stop: 03/03/21 04:21 Last Admin: 03/03/21 03:22 Dose: 999 mls/hr Documented by: Albumin Human (Buminate 5%) Confirm Administered Dose 250 mls @ as directed .ROUTE .STK-MED ONE Stop: 03/03/21 04:34 Sodium Chloride (Normal Saline) Confirm Administered Dose 20 mls @ as directed .ROUTE .STK-MED ONE Stop: 03/03/21 04:34 Lidocaine (Lidocaine 2% 5 Ml Sdv) Confirm Administered Dose 5 ml .ROUTE .STK-MED ONE Stop: 03/03/21 04:31 Methylergonovine Maleate (Methylergonovine 0.2 Mg/1 Ml Amp) 0.2 mg IM STAT STA Stop: 03/03/21 03:45 Last Admin: 03/03/21 03:48 Dose: 0.2 mg Documented by: Methylergonovine Maleate (Methylergonovine 0.2 Mg/1 Ml Amp) Confirm Administered Dose 0.2 mg .ROUTE .STK-MED ONE Stop: 03/03/21 03:46 Last Admin: 03/03/21 03:48 Dose: Not Given Documented by: Midazolam HCl (Midazolam 1 Mg/Ml 2 Ml Sdv) Confirm Administered Dose 2 mg .ROUTE .STK-MED ONE Stop: 03/03/21 04:30 Misoprostol (Misoprostol 200 Mcg Tab) Confirm Administered Dose 600 mcg .ROUTE .STK-MED ONE Stop: 03/03/21 04:36 Ondansetron HCl (Ondansetron 4 Mg/2 Ml Sdv) Confirm Administered Dose 4 mg .ROUTE .STK-MED ONE Stop: 03/03/21 04:31 Oxytocin (Oxytocin 10 Units/1 Ml Sdv) 20 unit IM ONETIME ONE Stop: 03/03/21 04:15 Last Admin: 03/03/21 04:22 Dose: 20 unit Documented by: Rocuronium [place] (Rocuronium [place] 50 Mg/5 Ml Syringe) Confirm Administered Dose 50 mg .ROUTE .STK-MED ONE Stop: 03/03/21 04:31 Sugammadex Sodium (Sugammadex Sodium 200 Mg/2 Ml Vial) Confirm Administered Dose 200 mg .ROUTE .STK-MED ONE Stop: 03/03/21 04:31 Tranexamic Acid (Tranexamic Acid 1,000 Mg/10 Ml Amp) Confirm Administered Dose 1,000 mg .ROUTE .STK-MED ONE Stop: 03/03/21 03:12 Last Admin: 03/03/21 03:20 Dose: Not Given Documented by: Tranexamic Acid (Tranexamic Acid 1,000 Mg/10 Ml Amp) Confirm Administered Dose 1,000 mg .ROUTE .STK-MED ONE Stop: 03/03/21 04:53
--- NOTE | 2021-03-03 05:45 | US ---
INDICATION: Heavy vaginal bleeding. Spontaneous at home, approximately 21 weeks . COMPARISON: None available. FINDINGS: Transabdominal ultrasound examination of the female pelvis was performed. There is no sign intrauterine gestational sac. The uterus is anteverted with no evidence of mass. The endometrial lining is prominently increased in thickness at 46 mm. The material lining the uterine cavity does not show increased color Doppler flow, but the amount of material present is strongly suspicious for retained placenta. The material filling the uterine cavity bulges through the cervix, measuring 45 millimeters in diameter in the area of the cervix. The ovaries are not identified. There is no sign of free fluid in the pelvis. IMPRESSION: No sign of an intrauterine gestational sac, canal consistent with a completed spontaneous . Prominent thickening of the endometrial lining at 46 millimeters, suspicious for retained products of conception, despite the absence of increased color Doppler flow. This material protrudes through the cervical os. Dictated by Eyad Waterman MD @ 03/03/2021 5:43:[address] Eyad Waterman @ Mar 03 2021 5:43AM
[2021-03-03] MEDS ORDERED: Oxytocin 10 Units/1 ML SDV ONE (05:58)
[2021-03-03] MEDS ORDERED: Ketorolac 30 MG/ML SDV IVPUSH ONE (06:07)
[2021-03-03] MEDS ORDERED: Acetaminophen/oxyCODONE 325-5 MG Tab PO PRN ×2 (06:07)
[2021-03-03] MEDS ORDERED: Morphine 4 MG/ML Syringe IVPUSH PRN (06:07)
[2021-03-03] MEDS ORDERED: Ondansetron 4 MG/2 ML SDV IVPUSH PRN ×2 (06:07→08:00)
[2021-03-03] MEDS ORDERED: Promethazine 25 MG/ML SDV IM PRN (06:07)
--- NOTE | 2021-03-03 06:15 | PCM.OPNOTE ---
- General Post-Op/Procedure Note Date of Surgery/Procedure: 03/03/21 Operative Procedure(s): Dilation and curettage Findings: Approximately 20 week sized, anteverted uterus. Retained placenta. Pre Op Diagnosis: 1. Previable spontaneous stillbirth. 2. Retained placenta Post-Op Diagnosis: 1. Previable spontaneous stillbirth. 2. Retained placenta Anesthesia Technique: General ET Tube Primary Surgeon: Jo Farmer Anesthesia Provider: Glenn Griffin Pathology: Products of conception, placenta Fluid Replacement, Intraop: 2,500 (and 1u PRCs) Output, Urine Amount: 20 EBL in mLs: 700 (intraoperatively) Complications: None known Condition: Fair Free Text/Narrative:: Intake & Output 03/02/21 03/02/21 03/03/21 14:59 22:59 06:59 Output Total 10 Balance -10 Dictation #[id number]
--- NOTE | 2021-03-03 06:37 | PCM48HPAN ---
Post Anesthesia Note - EVALUATION WITHIN 48HRS OF ANESTHETIC Vital Signs in Normal Range: Yes Patient Participated in Evaluation: Yes Respiratory Function Stable: Yes Airway Patent: Yes Cardiovascular Function Stable: Yes Hydration Status Stable: Yes Pain Control Satisfactory: Yes Nausea and Vomiting Control Satisfactory: Yes Mental Status Recovered: Yes Vital Signs: Last Vital Signs Temp 36.4 C 03/03/21 06:13 Pulse 93 03/03/21 06:29 Resp 11 L 03/03/21 06:29 BP 128/87 03/03/21 06:29 Pulse Ox 100 03/03/21 06:29
--- NOTE | 2021-03-03 06:37 | PCM.POSTAN ---
POST ANESTHESIA ASSESSMENT - MENTAL STATUS Mental Status: Alert - VITAL SIGNS Vital Signs: Last Vital Signs Temp 36.4 C 03/03/21 06:13 Pulse 93 03/03/21 06:29 Resp 11 L 03/03/21 06:29 BP 128/87 03/03/21 06:29 Pulse Ox 100 03/03/21 06:29 - RESPIRATORY Respiratory Status: Respiratory Rate WNL - CARDIOVASCULAR CV Status: Pulse Rate WNL - GASTROINTESTINAL GI Status: No Symptoms - POST OP HYDRATION Hydration Status: Adequate & Stable
--- NOTE | 2021-03-03 07:03 | OR ---
SURGEON: JO FARMER MD DATE OF PROCEDURE: 03/03/2021 PREOPERATIVE DIAGNOSES: 1. Previable spontaneous stillbirth. 2. Retained placenta. POSTOPERATIVE DIAGNOSES: 1. Previable spontaneous stillbirth. 2. Retained placenta. PROCEDURE: Dilation and curettage. PRIMARY SURGEON: Jo Farmer MD SHOW DOG TRAINER: None. ANESTHESIA PROVIDER: Glenn Griffin CRNA. ANESTHESIA: General endotracheal. COMPLICATIONS: None known. ESTIMATED BLOOD LOSS: 700 mL intraoperatively. IV FLUIDS: 2500 mL of crystalloid and 1 unit of packed red blood cells intraoperatively. URINE OUTPUT: 20 mL, straight cath, during the procedure. FINDINGS: Approximately 20-week sized uterus. Retained placenta. PATHOLOGY: Products of conception, placenta. INDICATION: The patient is a 40-year-old 7, para 3-1-3-3 female, who was transferred to [facility] ED by EMS due to heavy vaginal bleeding. Per EMS report, upon arrival to the patient's home, the patient was bleeding heavily and there was noted to be a stillborn infant within the toilet. The patient arrived to the ED while IV TXA was infusing per EMS. A pelvic exam was then performed by the ED provider, and profuse vaginal bleeding was noted. Hemoglobin was 9.0. The patient became symptomatic, however, her vital signs remained within normal limits. A bedside ultrasound was performed, and a retained placenta was noted to be within the uterus. Brief examination of the stillborn was performed and noted to be approximately 21 weeks' gestation and 1 kg. Due to ongoing bleeding and retained placenta, the patient was consented for the procedure of dilation and curettage. PROCEDURE IN DETAIL: The patient was then taken to the operating room, where anesthesia was induced. On transfer to the OR, 1 unit of packed red blood cells was then initiated as transfusion. She was then prepped and draped in the dorsal lithotomy position. The bladder was then drained. Bimanual exam was performed. An open-sided Graves speculum was introduced into the vagina and visualized the cervix, which was approximately 6 cm dilated. A portion of the placenta was noted to be delivering through the cervical os, which was then removed. Bimanual exam was then performed once again, and the placenta was noted to be adhered to the anterior uterine wall. The cervix was then clamped with a long Allis at 12 o'clock, and a banjo curette was advanced to the fundus and curettage was performed circumferentially around the uterus. A bedside ultrasound was then obtained, and a small amount of placenta noted to be within the uterus still. A ring forceps was used under visualization to grasp this remaining placenta. An 11 curved suction curette was also used at this time in an attempt to remove the adhered placenta. Under direct visualization with the ultrasound, the banjo curettage was performed once more with minimal tissue removed and a gritty texture was noted throughout. As the procedure was concluding, a small gush of blood was noted. 600 mg of Cytotec were administered rectally and IV Pitocin was initiated as well to be run to the post anesthesia time period. Throughout the procedure, the patient's vital signs were stable. The patient tolerated the procedure well. Sponge, lap, and needle count were correct x2. The patient was taken to recovery in stable condition. JESSE / MIKA /[id number] JOCY
[2021-03-03] MEDS ORDERED: Naloxone 0.4 MG/ML Syringe IVPUSH PRN (08:00)
[2021-03-03] MEDS ORDERED: Morphine 2 MG/ML SYRINGE IVPUSH PRN (08:00)
[2021-03-03] MEDS ORDERED: Albuterol 0.083% 2.5 MG/3 ML Neb Soln NEB PRN (08:00)
[2021-03-03] MEDS ORDERED: Metoclopramide 10 MG/2 ML SDV IVPUSH PRN (08:00)
[2021-03-03] MEDS ORDERED: HYDROmorphone 2 MG/ML Syringe IVPUSH PRN (08:00)
[2021-03-03] MEDS ORDERED: Doxycycline 100 MG Cap PO ONE (09:00)
[2021-03-03] MEDS ORDERED: Ketorolac 30 MG/ML SDV IVPUSH PRN (12:10)
--- NOTE | 2021-03-03 13:10 | PCM.SURGPN ---
- General Info Date of Service: 03/03/21 Date of Surgery/Procedure: 03/03/21 POD#: 0 Post-Op Diagnosis: retained placenta after second trimester loss Functional Status: Reports: Pain Controlled, Tolerating Diet, Other (bleeding is improved, has not been up yet, denies palpitation or shortness of breath. ) - Review of Systems General: Reports: No Symptoms HEENT: Reports: No Symptoms Pulmonary: Reports: No Symptoms Cardiovascular: Reports: No Symptoms Gastrointestinal: Reports: No Symptoms Genitourinary: Reports: No Symptoms Musculoskeletal: Reports: No Symptoms Skin: Reports: No Symptoms Neurological: Reports: No Symptoms Psychiatric: Reports: No Symptoms - Patient Data Vitals - Most Recent: Last Vital Signs Temp 36.7 C 03/03/21 07:45 Pulse 77 03/03/21 09:41 Resp 20 03/03/21 09:41 BP 97/60 03/03/21 09:41 Pulse Ox 94 L 03/03/21 09:41 Weight - Most Recent: 97.522 kg I&O - Last 24 Hours: Intake & Output 03/02/21 03/03/21 03/03/21 22:59 06:59 14:59 Intake Total 2500 Output Total 30 Balance 2470 Lab Results Last 24 Hrs: Laboratory Results - last 24 hr 03/03/21 03/03/21 03/03/21 Range/Units 02:40 02:58 02:58 WBC 18.32 H (4.0-11.0) K/uL RBC 3.32 L (4.30-5.90) M/uL Hgb 9.0 L (12.0-16.0) g/dL Hct 27.6 L (36.0-46.0) % MCV 83.1 (80.0-98.0) fL MCH 27.1 (27.0-32.0) pg MCHC 32.6 (31.0-37.0) g/dL RDW Std Deviation 43.6 (28.0-62.0) fl RDW Coeff of Dalia 14 (11.0-15.0) % Plt Count 344 (150-400) K/uL MPV 10.10 (7.40-12.00) fL Neut % (Auto) 82.5 H (48.0-80.0) % Lymph % (Auto) 10.4 L (16.0-40.0) % [facility] % (Auto) 6.4 (0.0-15.0) % Eos % (Auto) 0.5 (0.0-7.0) % Baso % (Auto) 0.2 (0.0-1.5) % Neut # (Auto) 15.1 H (1.4-5.7) K/uL Lymph # (Auto) 1.9 (0.6-2.4) K/uL [facility] # (Auto) 1.2 H (0.0-0.8) K/uL Eos # (Auto) 0.1 (0.0-0.7) K/uL Baso # (Auto) 0.0 (0.0-0.1) K/uL Nucleated RBC % 0.0 /100WBC Nucleated RBCs # 0 K/uL INR 1.02 APTT 20.1 (18.6-31.3) SEC Sodium (136-145) mmol/L Potassium (3.5-5.1) mmol/L Chloride (98-107) mmol/L Carbon Dioxide (21.0-32.0) mmol/L BUN (7.0-18.0) mg/dL Creatinine (0.6-1.0) mg/dL Est Cr Clr Drug Dosing mL/min Estimated GFR (MDRD) ml/min Glucose (74-106) mg/dL Calcium (8.5-10.1) mg/dL Total Bilirubin (0.2-1.0) mg/dL AST (15-37) IU/L ALT (14-63) IU/L Alkaline Phosphatase (46-116) U/L Total Protein (6.4-8.2) g/dL Albumin (3.4-5.0) g/dL Globulin (2.6-4.0) g/dL Albumin/Globulin Ratio (0.9-1.6) HCG, Quant mIU/mL Urine Color Cancelled Urine Appearance Cancelled Urine pH Cancelled Ur Specific [place] Cancelled Urine Protein Cancelled Urine Glucose (UA) Cancelled Urine Ketones Cancelled Urine Occult Blood Cancelled Urine Nitrite Cancelled Urine Bilirubin Cancelled Urine Ictotest Cancelled Urine Urobilinogen Cancelled Ur Leukocyte Esterase Cancelled Urine RBC (0-2/HPF) Urine WBC (0-5/HPF) Ur Epithelial Cells (NONE-FEW) Urine Bacteria (NEGATIVE) Urine Mucus (NONE-MOD) Urine Opiates Screen (NEGATIVE) Ur Oxycodone Screen (NEGATIVE) Urine Methadone Screen (NEGATIVE) Ur Barbiturates Screen (NEGATIVE) Ur Phencyclidine Scrn (NEGATIVE) Ur Amphetamine Screen (NEGATIVE) U Methamphetamines Scrn (NEGATIVE) U Benzodiazepines Scrn (NEGATIVE) U Cocaine Metab Screen (NEGATIVE) U Marijuana (THC) Screen (NEGATIVE) SARS-CoV-2 RNA (DANA) (NEGATIVE) Blood Type Antibody Screen Crossmatch 03/03/21 03/03/21 03/03/21 Range/Units 02:58 03:02 03:20 WBC (4.0-11.0) K/uL RBC (4.30-5.90) M/uL Hgb (12.0-16.0) g/dL Hct (36.0-46.0) % MCV (80.0-98.0) fL MCH (27.0-32.0) pg MCHC (31.0-37.0) g/dL RDW Std Deviation (28.0-62.0) fl RDW Coeff of Dalia (11.0-15.0) % Plt Count (150-400) K/uL MPV (7.40-12.00) fL Neut % (Auto) (48.0-80.0) % Lymph % (Auto) (16.0-40.0) % [facility] % (Auto) (0.0-15.0) % Eos % (Auto) (0.0-7.0) % Baso % (Auto) (0.0-1.5) % Neut # (Auto) (1.4-5.7) K/uL Lymph # (Auto) (0.6-2.4) K/uL [facility] # (Auto) (0.0-0.8) K/uL Eos # (Auto) (0.0-0.7) K/uL Baso # (Auto) (0.0-0.1) K/uL Nucleated RBC % /100WBC Nucleated RBCs # K/uL INR APTT (18.6-31.3) SEC Sodium 137 (136-145) mmol/L Potassium 3.1 L (3.5-5.1) mmol/L Chloride 100 (98-107) mmol/L Carbon Dioxide 27.3 (21.0-32.0) mmol/L BUN 8 (7.0-18.0) mg/dL Creatinine 0.7 (0.6-1.0) mg/dL Est Cr Clr Drug Dosing 86.18 mL/min Estimated GFR (MDRD) > 60.0 ml/min Glucose 166 H (74-106) mg/dL Calcium 7.9 L (8.5-10.1) mg/dL Total Bilirubin 0.3 (0.2-1.0) mg/dL AST 17 (15-37) IU/L ALT 17 (14-63) IU/L Alkaline Phosphatase 68 (46-116) U/L Total Protein 6.0 L (6.4-8.2) g/dL Albumin 2.4 L (3.4-5.0) g/dL Globulin 3.6 (2.6-4.0) g/dL Albumin/Globulin Ratio 0.7 L (0.9-1.6) HCG, Quant 8070.0 mIU/mL Urine Color Urine Appearance Urine pH Ur Specific [place] Urine Protein Urine Glucose (UA) Urine Ketones Urine Occult Blood Urine Nitrite Urine Bilirubin Urine Ictotest Urine Urobilinogen Ur Leukocyte Esterase Urine RBC (0-2/HPF) Urine WBC (0-5/HPF) Ur Epithelial Cells (NONE-FEW) Urine Bacteria (NEGATIVE) Urine Mucus (NONE-MOD) Urine Opiates Screen (NEGATIVE) Ur Oxycodone Screen (NEGATIVE) Urine Methadone Screen (NEGATIVE) Ur Barbiturates Screen (NEGATIVE) Ur Phencyclidine Scrn (NEGATIVE) Ur Amphetamine Screen (NEGATIVE) U Methamphetamines Scrn (NEGATIVE) U Benzodiazepines Scrn (NEGATIVE) U Cocaine Metab Screen (NEGATIVE) U Marijuana (THC) Screen (NEGATIVE) SARS-CoV-2 RNA (DANA) NEGATIVE (NEGATIVE) Blood Type O POSITIVE Antibody Screen NEGATIVE Crossmatch See Detail 03/03/21 03/03/21 03/03/21 Range/Units 05:03 05:03 07:55 WBC (4.0-11.0) K/uL RBC (4.30-5.90) M/uL Hgb 6.8 L (12.0-16.0) g/dL Hct 20.5 L (36.0-46.0) % MCV (80.0-98.0) fL MCH (27.0-32.0) pg MCHC (31.0-37.0) g/dL RDW Std Deviation (28.0-62.0) fl RDW Coeff of Dalia (11.0-15.0) % Plt Count (150-400) K/uL MPV (7.40-12.00) fL Neut % (Auto) (48.0-80.0) % Lymph % (Auto) (16.0-40.0) % [facility] % (Auto) (0.0-15.0) % Eos % (Auto) (0.0-7.0) % Baso % (Auto) (0.0-1.5) % Neut # (Auto) (1.4-5.7) K/uL Lymph # (Auto) (0.6-2.4) K/uL [facility] # (Auto) (0.0-0.8) K/uL Eos # (Auto) (0.0-0.7) K/uL Baso # (Auto) (0.0-0.1) K/uL Nucleated RBC % /100WBC Nucleated RBCs # K/uL INR APTT (18.6-31.3) SEC Sodium (136-145) mmol/L Potassium (3.5-5.1) mmol/L Chloride (98-107) mmol/L Carbon Dioxide (21.0-32.0) mmol/L BUN (7.0-18.0) mg/dL Creatinine (0.6-1.0) mg/dL Est Cr Clr Drug Dosing mL/min Estimated GFR (MDRD) ml/min Glucose (74-106) mg/dL Calcium (8.5-10.1) mg/dL Total Bilirubin (0.2-1.0) mg/dL AST (15-37) IU/L ALT (14-63) IU/L Alkaline Phosphatase (46-116) U/L Total Protein (6.4-8.2) g/dL Albumin (3.4-5.0) g/dL Globulin (2.6-4.0) g/dL Albumin/Globulin Ratio (0.9-1.6) HCG, Quant mIU/mL Urine Color YELLOW Urine Appearance CLEAR Urine pH 6.0 Ur Specific [place] >= 1.030 Urine Protein 30 H Urine Glucose (UA) NEGATIVE Urine Ketones NEGATIVE Urine Occult Blood TRACE-INTACT H Urine Nitrite NEGATIVE Urine Bilirubin SMALL H Urine Ictotest Urine Urobilinogen 0.2 Ur Leukocyte Esterase NEGATIVE Urine RBC 0-2 (0-2/HPF) Urine WBC 0-2 (0-5/HPF) Ur Epithelial Cells MODERATE (NONE-FEW) Urine Bacteria FEW (NEGATIVE) Urine Mucus MODERATE (NONE-MOD) Urine Opiates Screen NEGATIVE (NEGATIVE) Ur Oxycodone Screen NEGATIVE (NEGATIVE) Urine Methadone Screen NEGATIVE (NEGATIVE) Ur Barbiturates Screen NEGATIVE (NEGATIVE) Ur Phencyclidine Scrn NEGATIVE (NEGATIVE) Ur Amphetamine Screen NEGATIVE (NEGATIVE) U Methamphetamines Scrn NEGATIVE (NEGATIVE) U Benzodiazepines Scrn NEGATIVE (NEGATIVE) U Cocaine Metab Screen NEGATIVE (NEGATIVE) U Marijuana (THC) Screen NEGATIVE (NEGATIVE) SARS-CoV-2 RNA (DANA) (NEGATIVE) Blood Type Antibody Screen Crossmatch 03/03/21 Range/Units 11:55 WBC (4.0-11.0) K/uL RBC (4.30-5.90) M/uL Hgb 5.9 L (12.0-16.0) g/dL Hct (36.0-46.0) % MCV (80.0-98.0) fL MCH (27.0-32.0) pg MCHC (31.0-37.0) g/dL RDW Std Deviation (28.0-62.0) fl RDW Coeff of Dalia (11.0-15.0) % Plt Count (150-400) K/uL MPV (7.40-12.00) fL Neut % (Auto) (48.0-80.0) % Lymph % (Auto) (16.0-40.0) % [facility] % (Auto) (0.0-15.0) % Eos % (Auto) (0.0-7.0) % Baso % (Auto) (0.0-1.5) % Neut # (Auto) (1.4-5.7) K/uL Lymph # (Auto) (0.6-2.4) K/uL [facility] # (Auto) (0.0-0.8) K/uL Eos # (Auto) (0.0-0.7) K/uL Baso # (Auto) (0.0-0.1) K/uL Nucleated RBC % /100WBC Nucleated RBCs # K/uL INR APTT (18.6-31.3) SEC Sodium (136-145) mmol/L Potassium (3.5-5.1) mmol/L Chloride (98-107) mmol/L Carbon Dioxide (21.0-32.0) mmol/L BUN (7.0-18.0) mg/dL Creatinine (0.6-1.0) mg/dL Est Cr Clr Drug Dosing mL/min Estimated GFR (MDRD) ml/min Glucose (74-106) mg/dL Calcium (8.5-10.1) mg/dL Total Bilirubin (0.2-1.0) mg/dL AST (15-37) IU/L ALT (14-63) IU/L Alkaline Phosphatase (46-116) U/L Total Protein (6.4-8.2) g/dL Albumin (3.4-5.0) g/dL Globulin (2.6-4.0) g/dL Albumin/Globulin Ratio (0.9-1.6) HCG, Quant mIU/mL Urine Color Urine Appearance Urine pH Ur Specific [place] Urine Protein Urine Glucose (UA) Urine Ketones Urine Occult Blood Urine Nitrite Urine Bilirubin Urine Ictotest Urine Urobilinogen Ur Leukocyte Esterase Urine RBC (0-2/HPF) Urine WBC (0-5/HPF) Ur Epithelial Cells (NONE-FEW) Urine Bacteria (NEGATIVE) Urine Mucus (NONE-MOD) Urine Opiates Screen (NEGATIVE) Ur Oxycodone Screen (NEGATIVE) Urine Methadone Screen (NEGATIVE) Ur Barbiturates Screen (NEGATIVE) Ur Phencyclidine Scrn (NEGATIVE) Ur Amphetamine Screen (NEGATIVE) U Methamphetamines Scrn (NEGATIVE) U Benzodiazepines Scrn (NEGATIVE) U Cocaine Metab Screen (NEGATIVE) U Marijuana (THC) Screen (NEGATIVE) SARS-CoV-2 RNA (DANA) (NEGATIVE) Blood Type Antibody Screen Crossmatch Med Orders - Current: Current Medications Albuterol (Albuterol 0.083% 2.5 Mg/3 Ml Neb Soln) 2.5 mg NEB ONETIME PRN PRN Reason: Wheezing Droperidol (Droperidol 5 Mg/2 Ml Sdv) 0.625 mg IVPUSH ONETIME PRN PRN Reason: Nausea/Vomiting Fentanyl (Fentanyl 100 Mcg/2 Ml Sdv) 50 mcg IVPUSH Q5M PRN PRN Reason: Pain (mild 1-3) Hydromorphone HCl (Hydromorphone 2 Mg/Ml Syringe) 0.5 mg IVPUSH Q10M PRN PRN Reason: Pain (moderate 4-6) Ketorolac Tromethamine (Ketorolac 30 Mg/Ml Sdv) 30 mg IVPUSH Q6H PRN PRN Reason: Pain (severe 7-10) Stop: 03/08/21 12:11 Metoclopramide HCl (Metoclopramide 10 Mg/2 Ml Sdv) 10 mg IVPUSH ONETIME PRN PRN Reason: Nausea/Vomiting Morphine Sulfate (Morphine 4 Mg/Ml Syringe) 4 mg IVPUSH Q2H PRN PRN Reason: Pain (severe 7-10) Morphine Sulfate (Morphine 2 Mg/Ml Syringe) 2 mg IVPUSH Q10M PRN PRN Reason: Pain (severe 7-10) Naloxone HCl (Naloxone 0.4 Mg/Ml Syringe) 0.1 mg IVPUSH ASDIRECTED PRN PRN Reason: Respiratory Depression Ondansetron HCl (Ondansetron 4 Mg/2 Ml Sdv) 4 mg IVPUSH Q6H PRN PRN Reason: Nausea/Vomiting Ondansetron HCl (Ondansetron 4 Mg/2 Ml Sdv) 4 mg IVPUSH ONETIME PRN PRN Reason: Nausea/Vomiting Oxycodone/Acetaminophen (Acetaminophen/Oxycodone 325-5 Mg Tab) 1 tab PO Q4H PRN PRN Reason: Pain (moderate 4-6) Oxycodone/Acetaminophen (Acetaminophen/Oxycodone 325-5 Mg Tab) 2 tab PO Q4H PRN PRN Reason: Pain (moderate 4-6) Promethazine HCl (Promethazine 25 Mg/Ml Sdv) 25 mg IM Q6H PRN PRN Reason: Nausea/Vomiting Sodium Chloride (Sodium Chloride 0.9% 10 Ml Syringe) 10 ml FLUSH ASDIRECTED PRN PRN Reason: Keep Vein Open Sodium Chloride (Sodium Chloride 0.9% 2.5 Ml Syringe) 2.5 ml FLUSH ASDIRECTED PRN PRN Reason: Keep Vein Open Discontinued Medications Carboprost Tromethamine (Carboprost Tromethamine 250 Mcg/1 Ml Amp) Confirm Administered Dose 250 mcg .ROUTE .STK-MED ONE Stop: 03/03/21 04:37 Cefazolin Sodium (Cefazolin 1 Gm Vial) Confirm Administered Dose 2 gm .ROUTE .STK-MED ONE Stop: 03/03/21 04:34 Doxycycline Hyclate (Doxycycline 100 Mg Cap) 200 mg PO ONETIME ONE Stop: 03/03/21 09:01 Last Admin: 03/03/21 08:57 Dose: 200 mg Documented by: Etomidate (Etomidate 2 Mg/Ml 20 Ml Sdv) Confirm Administered Dose 40 mg IVPUSH .STK-MED ONE Stop: 03/03/21 04:31 Fentanyl (Fentanyl 100 Mcg/2 Ml Sdv) Confirm Administered Dose 100 mcg .ROUTE .S TK-MED ONE Stop: 03/03/21 04:30 Fentanyl (Fentanyl 100 Mcg/2 Ml Sdv) 50 mcg IVPUSH Q5M PRN PRN Reason: Pain Glycopyrrolate (Glycopyrrolate 0.2 Mg/Ml Sdv) Confirm Administered Dose 0.2 mg .ROUTE .STK-MED ONE Stop: 03/03/21 04:31 Tranexamic Acid 1,000 mg/ (Sodium Chloride) 110 mls @ 12.5 mls/hr IV ONETIME ONE Stop: 03/03/21 11:50 Last Admin: 03/03/21 03:18 Dose: 12.5 mls/hr Documented by: Sodium Chloride (Normal Saline) 1,000 mls @ 999 mls/hr IV .Bolus ONE Stop: 03/03/21 04:21 Last Admin: 03/03/21 03:22 Dose: 999 mls/hr Documented by: Albumin Human (Buminate 5%) Confirm Administered Dose 250 mls @ as directed .ROUTE .STK-MED ONE Stop: 03/03/21 04:34 Sodium Chloride (Normal Saline) Confirm Administered Dose 20 mls @ as directed .ROUTE .STK-MED ONE Stop: 03/03/21 04:34 Acetaminophen 1,000 mg/ Premix 100 mls @ 400 mls/hr IV Q6H PRN PRN Reason: Pain Ketorolac Tromethamine (Ketorolac 30 Mg/Ml Sdv) 30 mg IVPUSH ONETIME ONE Stop: 03/03/21 06:08 Last Admin: 03/03/21 06:37 Dose: 30 mg Documented by: Lidocaine (Lidocaine 2% 5 Ml Sdv) Confirm Administered Dose 5 ml .ROUTE .STK-MED ONE Stop: 03/03/21 04:31 Methylergonovine Maleate (Methylergonovine 0.2 Mg/1 Ml Amp) 0.2 mg IM STAT STA Stop: 03/03/21 03:45 Last Admin: 03/03/21 03:48 Dose: 0.2 mg Documented by: Methylergonovine Maleate (Methylergonovine 0.2 Mg/1 Ml Amp) Confirm Administered Dose 0.2 mg .ROUTE .STK-MED ONE Stop: 03/03/21 03:46 Last Admin: 03/03/21 03:48 Dose: Not Given Documented by: Midazolam HCl (Midazolam 1 Mg/Ml 2 Ml Sdv) Confirm Administered Dose 2 mg .ROUTE .STK-MED ONE Stop: 03/03/21 04:30 Misoprostol (Misoprostol 200 Mcg Tab) Confirm Administered Dose 600 mcg .ROUTE .STK-MED ONE Stop: 03/03/21 04:36 Ondansetron HCl (Ondansetron 4 Mg/2 Ml Sdv) Confirm Administered Dose 4 mg .ROUTE .STK-MED ONE Stop: 03/03/21 04:31 Oxytocin (Oxytocin 10 Units/1 Ml Sdv) 20 unit IM ONETIME ONE Stop: 03/03/21 04:15 Last Admin: 03/03/21 04:22 Dose: 20 unit Documented by: Oxytocin (Oxytocin 10 Units/1 Ml Sdv) Confirm Administered Dose 20 unit .ROUTE .STK-MED ONE Stop: 03/03/21 05:59 Rocuronium Mobile (Rocuronium Mobile 50 Mg/5 Ml Syringe) Confirm Administered Dose 50 mg .ROUTE .STK-MED ONE Stop: 03/03/21 04:31 Sugammadex Sodium (Sugammadex Sodium 200 Mg/2 Ml Vial) Confirm Administered Dose 200 mg .ROUTE .STK-MED ONE Stop: 03/03/21 04:31 Tranexamic Acid (Tranexamic Acid 1,000 Mg/10 Ml Amp) Confirm Administered Dose 1,000 mg .ROUTE .STK-MED ONE Stop: 03/03/21 03:12 Last Admin: 03/03/21 03:20 Dose: Not Given Documented by: Tranexamic Acid (Tranexamic Acid 1,000 Mg/10 Ml Amp) Confirm Administered Dose 1,000 mg .ROUTE .STK-MED ONE Stop: 03/03/21 04:53 - Exam General: Alert, Oriented Neck: Supple Lungs: Clear to Auscultation, Normal Respiratory Effort Cardiovascular: Regular Rate, Regular Rhythm GI/Abdominal Exam: Normal Bowel Sounds, Soft, Non-Tender, No Organomegaly, No Distention Extremities: Pedal Edema (2+ bilateral) Skin: Warm, Dry, Intact Sepsis Event Note - Evaluation Sepsis Screening Result: No Definite Risk - Focused Exam Vital Signs: Vital Signs Temp Pulse Resp BP Pulse Ox 03/03/21 09:41 77 20 97/60 94 L 03/03/21 08:51 85 20 110/55 L 95 03/03/21 08:01 92 22 H 115/60 93 L 03/03/21 07:45 36.7 C 70 16 107/79 96 03/03/21 06:39 85 15 123/51 L 94 L 03/03/21 06:34 87 14 132/59 L 98 03/03/21 06:29 93 11 L 128/87 100 03/03/21 06:24 93 17 118/81 100 03/03/21 06:20 89 22 H 128/55 L 100 03/03/21 06:13 36.4 C 105 H 16 123/50 L 100 03/03/21 04:25 97.2 C H 90 18 111/56 L 98 03/03/21 03:50 96 18 101/60 95 03/03/21 03:35 93 18 99/56 L 95 03/03/21 03:20 94 18 97/49 L 95 03/03/21 02:53 36.4 C 97 20 102/63 96 - Problem List & Annotations (1) hemorrhage SNOMED Code(s): 29717788 Code(s): O72.1 - OTHER IMMEDIATE HEMORRHAGE Status: Acute Current Visit: Yes Qualifiers: hemorrhage type: unspecified Qualified Code(s): O72.1 - Other immediate hemorrhage - Problem List Review Problem List Initiated/Reviewed/Updated: Yes - My Orders Last 24 Hours: Active Orders 24 hr Category Date Time Status Patient Status [ADT] Routine ADT 03/03/21 03:58 Active Patient Status [ADT] Routine ADT 03/03/21 06:07 Active Antiembolic Devices [RC] PER UNIT ROUTINE Care 03/03/21 06:08 Active Blood Glucose Check, Bedside [RC] PRN Care 03/03/21 08:01 Active Communication Order [RC] PER UNIT ROUTINE Care 03/03/21 10:19 Active Communication Order [RC] ROUTINE Care 03/03/21 12:33 Active Notify Provider Vital Signs [RC] ASDIRECTED Care 03/03/21 06:07 Active Notify Provider Vital Signs [RC] ASDIRECTED Care 03/03/21 08:01 Active Overnight Pulse Oximetry [RC] Click to Edit Care 03/03/21 08:01 Active Oxygen Therapy [RC] ASDIRECTED Care 03/03/21 06:07 Active Oxygen Therapy [RC] PRN Care 03/03/21 08:01 Active RT Aerosol Therapy [RC] ASDIRECTED Care 03/03/21 08:01 Active RT Aerosol Therapy [RC] ASDIRECTED Care 03/03/21 08:01 Active RT Incentive Spirometry [RC] Q2HWA Care 03/03/21 06:07 Active Up With Assistance [RC] PER UNIT ROUTINE Care 03/03/21 06:07 Active Up ad Sammi [RC] PER UNIT ROUTINE Care 03/03/21 06:07 Active Vital Signs [RC] PER UNIT ROUTINE Care 03/03/21 06:07 Active Vital Signs [RC] Q4H Care 03/03/21 08:01 Active Regular Diet [DIET] Diet 03/03/21 Breakfast Active RED BLOOD CELLS LP [BBK] Stat Lab 03/03/21 03:02 Results TYPE AND SCREEN [BBK] Stat Lab 03/03/21 03:02 Results Acetaminophen/oxyCODONE [Percocet 325-5 MG] Med 03/03/21 06:07 Active 1 tab PO Q4H PRN Acetaminophen/oxyCODONE [Percocet 325-5 MG] Med 03/03/21 06:07 Active 2 tab PO Q4H PRN Albuterol [Proventil Neb Soln] Med 03/03/21 08:00 Active 2.5 mg NEB ONETIME PRN HYDROmorphone [Dilaudid] Med 03/03/21 08:00 Active 0.5 mg IVPUSH Q10M PRN Ketorolac [Toradol] Med 03/03/21 12:10 Active 30 mg IVPUSH Q6H PRN Metoclopramide [Reglan] Med 03/03/21 08:00 Active 10 mg IVPUSH ONETIME PRN Morphine Med 03/03/21 08:00 Active 2 mg IVPUSH Q10M PRN Morphine Med 03/03/21 06:07 Active 4 mg IVPUSH Q2H PRN Naloxone [Narcan] Med 03/03/21 08:00 Active 0.1 mg IVPUSH ASDIRECTED PRN Ondansetron [Zofran] Med 03/03/21 08:00 Active 4 mg IVPUSH ONETIME PRN Ondansetron [Zofran] Med 03/03/21 06:07 Active 4 mg IVPUSH Q6H PRN Promethazine [Phenergan] Med 03/03/21 06:07 Active 25 mg IM Q6H PRN Sodium Chloride 0.9% [Saline Flush] Med 03/03/21 02:52 Active 10 ml FLUSH ASDIRECTED PRN Sodium Chloride 0.9% [Saline Flush] Med 03/03/21 02:52 Active 2.5 ml FLUSH ASDIRECTED PRN droperidoL [Inapsine] Med 03/03/21 08:00 Active 0.625 mg IVPUSH ONETIME PRN fentaNYL [Sublimaze] Med 03/03/21 08:00 Active 50 mcg IVPUSH Q5M PRN Peripheral IV Discontinue [OM.PC] Routine Oth 03/03/21 06:07 Ordered Pulse Oximetry Continuous Monitoring [OM.PC] Routine Ot 03/03/21 08:01 Ordered Saline Lock Insert [OM.PC] Stat Ot 03/03/21 02:52 Ordered Sequential Compression Device [OM.PC] Per Unit Routine Ot 03/03/21 06:07 Ordered Transfuse Red Blood Cells [COMM] Stat Oth 03/03/21 03:36 Ordered Resuscitation Status Routine Resus Stat 03/03/21 06:07 Ordered Medication Orders Albuterol (Albuterol 0.083% 2.5 Mg/3 Ml Neb Soln) 2.5 mg NEB ONETIME PRN PRN Reason: Wheezing Droperidol (Droperidol 5 Mg/2 Ml Sdv) 0.625 mg IVPUSH ONETIME PRN PRN Reason: Nausea/Vomiting Fentanyl (Fentanyl 100 Mcg/2 Ml Sdv) 50 mcg IVPUSH Q5M PRN PRN Reason: Pain (mild 1-3) Hydromorphone HCl (Hydromorphone 2 Mg/Ml Syringe) 0.5 mg IVPUSH Q10M PRN PRN Reason: Pain (moderate 4-6) Ketorolac Tromethamine (Ketorolac 30 Mg/Ml Sdv) 30 mg IVPUSH Q6H PRN PRN Reason: Pain (severe 7-10) Stop: 03/08/21 12:11 Metoclopramide HCl (Metoclopramide 10 Mg/2 Ml Sdv) 10 mg IVPUSH ONETIME PRN PRN Reason: Nausea/Vomiting Morphine Sulfate (Morphine 4 Mg/Ml Syringe) 4 mg IVPUSH Q2H PRN PRN Reason: Pain (severe 7-10) Morphine Sulfate (Morphine 2 Mg/Ml Syringe) 2 mg IVPUSH Q10M PRN PRN Reason: Pain (severe 7-10) Naloxone HCl (Naloxone 0.4 Mg/Ml Syringe) 0.1 mg IVPUSH ASDIRECTED PRN PRN Reason: Respiratory Depression Ondansetron HCl (Ondansetron 4 Mg/2 Ml Sdv) 4 mg IVPUSH Q6H PRN PRN Reason: Nausea/Vomiting Ondansetron HCl (Ondansetron 4 Mg/2 Ml Sdv) 4 mg IVPUSH ONETIME PRN PRN Reason: Nausea/Vomiting Oxycodone/Acetaminophen (Acetaminophen/Oxycodone 325-5 Mg Tab) 1 tab PO Q4H PRN PRN Reason: Pain (moderate 4-6) Oxycodone/Acetaminophen (Acetaminophen/Oxycodone 325-5 Mg Tab) 2 tab PO Q4H PRN PRN Reason: Pain (moderate 4-6) Promethazine HCl (Promethazine 25 Mg/Ml Sdv) 25 mg IM Q6H PRN PRN Reason: Nausea/Vomiting Sodium Chloride (Sodium Chloride 0.9% 10 Ml Syringe) 10 ml FLUSH ASDIRECTED PRN PRN Reason: Keep Vein Open Sodium Chloride (Sodium Chloride 0.9% 2.5 Ml Syringe) 2.5 ml FLUSH ASDIRECTED PRN PRN Reason: Keep Vein Open - Assessment Assessment (Free Text/Narrative):: POD#0 after D&C for retained placenta after delivery of demised second trimester fetus, no care. Anemia- hemoglobin has dropped from 9.0 on arrival now to 5.9 having received 1 unit of blood in perioperative time period. Discussed that due anemia, possible further drop in hemoglobin, I recommend blood transfusion. Risks discussed including risk of blood borne infection and risk of transfusion reaction. Understanding these risks she does want to proceed with transfusion of 2 units packed RBC. Will follow with 20 mg oral lasix, anticipate home in am. May resume home medications.
[2021-03-03] MEDS ORDERED: NALOXONE HCL SCH (14:00)
[2021-03-03] MEDS ORDERED: BUPRENORPHINE HCL SCH (14:00)
[2021-03-03] MEDS: BUPRENORPHINE PO SCH (16:31)
[2021-03-03] MEDS: NALOXONE PO SCH (16:31)
[2021-03-03] MEDS ORDERED: Sertraline 100 MG Tab PO SCH ×2 (21:00)
[2021-03-03] MEDS ORDERED: Furosemide 20 MG Tab PO ONE (21:00)
[2021-03-03] MEDS ORDERED: BUPRENORPHINE PO ONE (21:15)
[2021-03-03] MEDS ORDERED: NALOXONE PO ONE (21:15)
[2021-03-04 06:35] LABS: BLOOD UREA NITROGEN,BUN 6 mg/dL (7.0-18.0); CARBON DIOXIDE,CO2 29.3 mmol/L (21.0-32.0); CHLORIDE,CL 103 mmol/L (98-107); GLUCOSE RANDOM 102 mg/dL (74-106); POTASSIUM,K 3.6 mmol/L (3.5-5.1); SODIUM,NA 138 mmol/L (136-145)
[2021-03-04 07:46] VITALS: PULSE 73
[2021-03-04] MEDS: BUPRENORPHINE PO SCH (07:55)
[2021-03-04] MEDS: NALOXONE PO SCH (07:55)
--- NOTE | 2021-03-04 08:07 | PCM.SURGPN ---
- General Info Date of Service: 03/04/21 Date of Surgery/Procedure: 03/03/21 POD#: 1 Post-Op Diagnosis: retained placenta after second trimester loss Admission Diagnosis/Problem: hemorrhage Functional Status: Reports: Pain Controlled, Tolerating Diet, Ambulating, Urinating, New Symptoms, Other (Minimal vaginal bleeding over 24 hours) - Review of Systems General: Reports: Fatigue HEENT: Reports: No Symptoms Pulmonary: Reports: No Symptoms Cardiovascular: Reports: No Symptoms Gastrointestinal: Reports: No Symptoms Genitourinary: Reports: No Symptoms Musculoskeletal: Reports: No Symptoms Skin: Reports: No Symptoms Neurological: Reports: No Symptoms Psychiatric: Reports: No Symptoms - Patient Data Vitals - Most Recent: Last Vital Signs Temp 97.5 F 03/04/21 07:46 Pulse 73 03/04/21 07:46 Resp 15 03/04/21 07:46 BP 86/56 L 03/04/21 07:46 Pulse Ox 95 03/04/21 07:46 Weight - Most Recent: 250 lb I&O - Last 24 Hours: Intake & Output 03/03/21 03/04/21 03/04/21 22:59 06:59 14:59 Intake Total 1608 750 Balance 1608 750 Lab Results Last 24 Hrs: Laboratory Results - last 24 hr 03/03/21 03/03/21 03/03/21 Range/Units 03:02 11:55 23:13 WBC (4.0-11.0) K/uL RBC (4.30-5.90) M/uL Hgb 5.9 L 8.2 L (12.0-16.0) g/dL Hct 24.4 L (36.0-46.0) % MCV (80.0-98.0) fL MCH (27.0-32.0) pg MCHC (31.0-37.0) g/dL RDW Std Deviation (28.0-62.0) fl RDW Coeff of Dalia (11.0-15.0) % Plt Count (150-400) K/uL MPV (7.40-12.00) fL Nucleated RBC % /100WBC Nucleated RBCs # K/uL Sodium (136-145) mmol/L Potassium (3.5-5.1) mmol/L Chloride (98-107) mmol/L Carbon Dioxide (21.0-32.0) mmol/L BUN (7.0-18.0) mg/dL Creatinine (0.6-1.0) mg/dL Est Cr Clr Drug Dosing mL/min Estimated GFR (MDRD) ml/min Glucose (74-106) mg/dL Calcium (8.5-10.1) mg/dL Blood Type O POSITIVE Antibody Screen NEGATIVE Crossmatch See Detail 03/04/21 03/04/21 Range/Units 05:50 05:50 WBC 6.29 (4.0-11.0) K/uL RBC 2.51 L (4.30-5.90) M/uL Hgb 7.1 L (12.0-16.0) g/dL Hct 21.2 L (36.0-46.0) % MCV 84.5 (80.0-98.0) fL MCH 28.3 (27.0-32.0) pg MCHC 33.5 (31.0-37.0) g/dL RDW Std Deviation 43.8 (28.0-62.0) fl RDW Coeff of Dalia 14 (11.0-15.0) % Plt Count 178 (150-400) K/uL MPV 10.30 (7.40-12.00) fL Nucleated RBC % 0.0 /100WBC Nucleated RBCs # 0 K/uL Sodium 138 (136-145) mmol/L Potassium 3.6 (3.5-5.1) mmol/L Chloride 103 (98-107) mmol/L Carbon Dioxide 29.3 (21.0-32.0) mmol/L BUN 6 L (7.0-18.0) mg/dL Creatinine 0.6 (0.6-1.0) mg/dL Est Cr Clr Drug Dosing 100.55 mL/min Estimated GFR (MDRD) > 60.0 ml/min Glucose 102 (74-106) mg/dL Calcium 7.4 L (8.5-10.1) mg/dL Blood Type Antibody Screen Crossmatch Med Orders - Current: Current Medications Ketorolac Tromethamine (Ketorolac 30 Mg/Ml Sdv) 30 mg IVPUSH Q6H PRN PRN Reason: Pain (severe 7-10) Stop: 03/08/21 12:11 Morphine Sulfate (Morphine 4 Mg/Ml Syringe) 4 mg IVPUSH Q2H PRN PRN Reason: Pain (severe 7-10) Ondansetron HCl (Ondansetron 4 Mg/2 Ml Sdv) 4 mg IVPUSH Q6H PRN PRN Reason: Nausea/Vomiting Oxycodone/Acetaminophen (Acetaminophen/Oxycodone 325-5 Mg Tab) 1 tab PO Q4H PRN PRN Reason: Pain (moderate 4-6) Oxycodone/Acetaminophen (Acetaminophen/Oxycodone 325-5 Mg Tab) 2 tab PO Q4H PRN PRN Reason: Pain (moderate 4-6) Buprenorphine/Naloxone Sl Tab 8/2 Mg 1 each PO Q8H PRN PRN Reason: WITHDRAWAL SYMPTOMS Promethazine HCl (Promethazine 25 Mg/Ml Sdv) 25 mg IM Q6H PRN PRN Reason: Nausea/Vomiting Sertraline HCl (Sertraline 100 Mg Tab) 200 mg PO BEDTIME VIC Last Admin: 03/03/21 20:42 Dose: 200 mg Documented by: Sodium Chloride (Sodium Chloride 0.9% 10 Ml Syringe) 10 ml FLUSH ASDIRECTED PRN PRN Reason: Keep Vein Open Sodium Chloride (Sodium Chloride 0.9% 2.5 Ml Syringe) 2.5 ml FLUSH ASDIRECTED PRN PRN Reason: Keep Vein Open Discontinued Medications Albuterol (Albuterol 0.083% 2.5 Mg/3 Ml Neb Soln) 2.5 mg NEB ONETIME PRN PRN Reason: Wheezing Carboprost Tromethamine (Carboprost Tromethamine 250 Mcg/1 Ml Amp) Confirm Administered Dose 250 mcg .ROUTE .STK-MED ONE Stop: 03/03/21 04:37 Cefazolin Sodium (Cefazolin 1 Gm Vial) Confirm Administered Dose 2 gm .ROUTE .STK-MED ONE Stop: 03/03/21 04:34 Doxycycline Hyclate (Doxycycline 100 Mg Cap) 200 mg PO ONETIME ONE Stop: 03/03/21 09:01 Last Admin: 03/03/21 08:57 Dose: 200 mg Documented by: Droperidol (Droperidol 5 Mg/2 Ml Sdv) 0.625 mg IVPUSH ONETIME PRN PRN Reason: Nausea/Vomiting Etomidate (Etomidate 2 Mg/Ml 20 Ml Sdv) Confirm Administered Dose 40 mg IVPUSH .STK-MED ONE Stop: 03/03/21 04:31 Fentanyl (Fentanyl 100 Mcg/2 Ml Sdv) Confirm Administered Dose 100 mcg .ROUTE .STK-MED ONE Stop: 03/03/21 04:30 Fentanyl (Fentanyl 100 Mcg/2 Ml Sdv) 50 mcg IVPUSH Q5M PRN PRN Reason: Pain Fentanyl (Fentanyl 100 Mcg/2 Ml Sdv) 50 mcg IVPUSH Q5M PRN PRN Reason: Pain (mild 1-3) Furosemide (Furosemide 20 Mg Tab) 20 mg PO ONETIME ONE Stop: 03/03/21 21:01 Last Admin: 03/03/21 20:42 Dose: 20 mg Documented by: Glycopyrrolate (Glycopyrrolate 0.2 Mg/Ml Sdv) Confirm Administered Dose 0.2 mg .ROUTE .STK-MED ONE Stop: 03/03/21 04:31 Hydromorphone HCl (Hydromorphone 2 Mg/Ml Syringe) 0.5 mg IVPUSH Q10M PRN PRN Reason: Pain (moderate 4-6) Tranexamic Acid 1,000 mg/ (Sodium Chloride) 110 mls @ 12.5 mls/hr IV ONETIME ONE Stop: 03/03/21 11:50 Last Admin: 03/03/21 03:18 Dose: 12.5 mls/hr Documented by: Sodium Chloride (Normal Saline) 1,000 mls @ 999 mls/hr IV .Bolus ONE Stop: 03/03/21 04:21 Last Admin: 03/03/21 03:22 Dose: 999 mls/hr Documented by: Albumin Human (Buminate 5%) Confirm Administered Dose 250 mls @ as directed .ROUTE .STK-MED ONE Stop: 03/03/21 04:34 Sodium Chloride (Normal Saline) Confirm Administered Dose 20 mls @ as directed .ROUTE .STK-MED ONE Stop: 03/03/21 04:34 Acetaminophen 1,000 mg/ Premix 100 mls @ 400 mls/hr IV Q6H PRN PRN Reason: Pain Ketorolac Tromethamine (Ketorolac 30 Mg/Ml Sdv) 30 mg IVPUSH ONETIME ONE Stop: 03/03/21 06:08 Last Admin: 03/03/21 06:37 Dose: 30 mg Documented by: Lidocaine (Lidocaine 2% 5 Ml Sdv) Confirm Administered Dose 5 ml .ROUTE .STK-MED ONE Stop: 03/03/21 04:31 Methylergonovine Maleate (Methylergonovine 0.2 Mg/1 Ml Amp) 0.2 mg IM STAT STA Stop: 03/03/21 03:45 Last Admin: 03/03/21 03:48 Dose: 0.2 mg Documented by: Methylergonovine Maleate (Methylergonovine 0.2 Mg/1 Ml Amp) Confirm Administered Dose 0.2 mg .ROUTE .STK-MED ONE Stop: 03/03/21 03:46 Last Admin: 03/03/21 03:48 Dose: Not Given Documented by: Metoclopramide HCl (Metoclopramide 10 Mg/2 Ml Sdv) 10 mg IVPUSH ONETIME PRN PRN Reason: Nausea/Vomiting Midazolam HCl (Midazolam 1 Mg/Ml 2 Ml Sdv) Confirm Administered Dose 2 mg .ROUTE .STK-MED ONE Stop: 03/03/21 04:30 Misoprostol (Misoprostol 200 Mcg Tab) Confirm Administered Dose 600 mcg .ROUTE .STK-MED ONE Stop: 03/03/21 04:36 Morphine Sulfate (Morphine 2 Mg/Ml Syringe) 2 mg IVPUSH Q10M PRN PRN Reason: Pain (severe 7-10) Naloxone HCl (Naloxone 0.4 Mg/Ml Syringe) 0.1 mg IVPUSH ASDIRECTED PRN PRN Reason: Respiratory Depression Ondansetron HCl (Ondansetron 4 Mg/2 Ml Sdv) Confirm Administered Dose 4 mg .ROUTE .STK-MED ONE Stop: 03/03/21 04:31 Ondansetron HCl (Ondansetron 4 Mg/2 Ml Sdv) 4 mg IVPUSH ONETIME PRN PRN Reason: Nausea/Vomiting Oxytocin (Oxytocin 10 Units/1 Ml Sdv) 20 unit IM ONETIME ONE Stop: 03/03/21 04:15 Last Admin: 03/03/21 04:22 Dose: 20 unit Documented by: Oxytocin (Oxytocin 10 Units/1 Ml Sdv) Confirm Administered Dose 20 unit .ROUTE .STK-MED ONE Stop: 03/03/21 05:59 Buprenorphine/Naloxone Sl Tab 8/2 Mg 1 each PO TIDMEALS VIC Last Admin: 03/04/21 07:55 Dose: 1 each Documented by: Buprenorphine/Naloxone Sl Tab 8/2 Mg 1 each PO ONETIME ONE Stop: 03/03/21 21:16 Last Admin: 03/03/21 21:42 Dose: 1 each Documented by: Rocuronium Penn (Rocuronium Penn 50 Mg/5 Ml Syringe) Confirm Administered Dose 50 mg .ROUTE .STK-MED ONE Stop: 03/03/21 04:31 Sugammadex Sodium (Sugammadex Sodium 200 Mg/2 Ml Vial) Confirm Administered Dose 200 mg .ROUTE .STK-MED ONE Stop: 03/03/21 04:31 Tranexamic Acid (Tranexamic Acid 1,000 Mg/10 Ml Amp) Confirm Administered Dose 1,000 mg .ROUTE .STK-MED ONE Stop: 03/03/21 03:12 Last Admin: 03/03/21 03:20 Dose: Not Given Documented by: Tranexamic Acid (Tranexamic Acid 1,000 Mg/10 Ml Amp) Confirm Administered Dose 1,000 mg .ROUTE .STK-MED ONE Stop: 03/03/21 04:53 - Exam General: Alert Lungs: Clear to Auscultation, Normal Respiratory Effort Cardiovascular: Regular Rate, Regular Rhythm GI/Abdominal Exam: Normal Bowel Sounds, Soft, Non-Tender, No Distention Extremities: Normal Inspection, Normal Range of Motion, Non-Tender, Pedal Edema (trace) Skin: Warm, Dry, Intact Neurological: No New Focal Deficit Psy/Mental Status: Normal Mood Sepsis Event Note - Evaluation Sepsis Screening Result: No Definite Risk - Focused Exam Vital Signs: Vital Signs Temp Pulse Resp BP Pulse Ox 03/04/21 07:46 97.5 F 73 15 86/56 L 95 03/04/21 04:00 96.3 F L 85 29 H 119/49 L 94 L 03/04/21 00:00 97.6 F 91 19 117/57 L 95 - Problem List Review Problem List Initiated/Reviewed/Updated: Yes - My Orders Last 24 Hours: Active Orders 24 hr Category Date Time Status Blood Glucose Check, Bedside [RC] PRN Care 03/03/21 08:01 Active Communication Order [RC] PER UNIT ROUTINE Care 03/03/21 10:19 Active Communication Order [RC] ROUTINE Care 03/03/21 12:33 Active Notify Provider Vital Signs [RC] ASDIRECTED Care 03/03/21 08:01 Active Overnight Pulse Oximetry [RC] Click to Edit Care 03/03/21 08:01 Active Oxygen Therapy [RC] PRN Care 03/03/21 08:01 Active RT Aerosol Therapy [RC] ASDIRECTED Care 03/03/21 08:01 Active RT Aerosol Therapy [RC] ASDIRECTED Care 03/03/21 08:01 Active Vital Signs [RC] Q4H Care 03/03/21 08:01 Active Ketorolac [Toradol] Med 03/03/21 12:10 Active 30 mg IVPUSH Q6H PRN Patient's Own Medication [Ptom] Med 03/04/21 08:15 Active 1 each PO Q8H PRN Sertraline [Zoloft] Med 03/03/21 21:00 Active 200 mg PO BEDTIME Pulse Oximetry Continuous Monitoring [OM.PC] Routine Oth 03/03/21 08:01 Ordered Medication Orders Ketorolac Tromethamine (Ketorolac 30 Mg/Ml Sdv) 30 mg IVPUSH Q6H PRN PRN Reason: Pain (severe 7-10) Stop: 03/08/21 12:11 Morphine Sulfate (Morphine 4 Mg/Ml Syringe) 4 mg IVPUSH Q2H PRN PRN Reason: Pain (severe 7-10) Ondansetron HCl (Ondansetron 4 Mg/2 Ml Sdv) 4 mg IVPUSH Q6H PRN PRN Reason: Nausea/Vomiting Oxycodone/Acetaminophen (Acetaminophen/Oxycodone 325-5 Mg Tab) 1 tab PO Q4H PRN PRN Reason: Pain (moderate 4-6) Oxycodone/Acetaminophen (Acetaminophen/Oxycodone 325-5 Mg Tab) 2 tab PO Q4H PRN PRN Reason: Pain (moderate 4-6) Buprenorphine/Naloxone Sl Tab 8/2 Mg 1 each PO Q8H PRN PRN Reason: WITHDRAWAL SYMPTOMS Promethazine HCl (Promethazine 25 Mg/Ml Sdv) 25 mg IM Q6H PRN PRN Reason: Nausea/Vomiting Sertraline HCl (Sertraline 100 Mg Tab) 200 mg PO BEDTIME VIC Last Admin: 03/03/21 20:42 Dose: 200 mg Documented by: KIM Sodium Chloride (Sodium Chloride 0.9% 10 Ml Syringe) 10 ml FLUSH ASDIRECTED PRN PRN Reason: Keep Vein Open Sodium Chloride (Sodium Chloride 0.9% 2.5 Ml Syringe) 2.5 ml FLUSH ASDIRECTED PRN PRN Reason: Keep Vein Open - Assessment Assessment (Free Text/Narrative):: POD#1 after D&C for retained placenta after delivery of demised second trimester fetus, no care. - Plan Plan (Free Text/Narrative):: Postoperative cares * Pain well controlled * Ambulating and voiding independently * Lochia decreasing * VSS, afebrile * Tolerating regular diet Dispo: stable. Anticipate discharge today pending patient status. Reviewed bleeding/infection precautions including fever/chills, intractable nausea/vomiting, pelvic pain not controlled by Tylenol or ibuprofen or heavy vaginal bleeding. Patient to make appointment with [facility] in 1-2 weeks for postop.
[2021-03-04] MEDS ORDERED: NALOXONE PO PRN (08:15)
[2021-03-04] MEDS ORDERED: BUPRENORPHINE PO PRN (08:15)
[2021-03-04 11:42] VITALS: BP 108/49
== END 2021-03-04 12:00 | disposition home or self-care (01) ==
LOC: MW.ED 02:50 → MW.SDS 03:58 → MW.MS 06:07 → MW.SDS 06:07 → MW.MS 06:08
PROVIDERS: ADMIT Obstetrics & Gynecology; ATTEND Obstetrics & Gynecology
DX: O72.2 Delayed and secondary postpartum hemorrhage (principal); O03.4 Incomplete spontaneous abortion without complication; F17.210 Nicotine dependence, cigarettes, uncomplicated; Z98.890 Other specified postprocedural states; Z01.812 Encounter for preprocedural laboratory examination; Z20.822 Contact with and (suspected) exposure to COVID-19; Z3A.21 21 weeks gestation of pregnancy; Z88.5 Allergy status to narcotic agent; Z88.8 Allergy status to other drugs, medicaments and biological substances; Z79.899 Other long term (current) drug therapy
CPT/HCPCS: 36415; 36430; 59812; 76815; 80048; 80053; 80305; 81001; 84702; 85014; 85018; 85025; 85027; 85610; 85730; 86850; 86900; 86901; 86920; 86921; 86922; 87635; 88305; 96365; 96372; 99285; A9270; G0378; J0690; J1885; J2210; J2250; J2590; J3490; J7030; P9016; P9045; 01965; 99291; J2405; J3010; U0002

== ENCOUNTER 2021-03-09 15:23 | Emergency (ER) | payer MEDICAID ==
--- NOTE | 2021-03-09 15:34 | EDM.PDOC ---
ED HPI GENERAL MEDICAL PROBLEM - General Stated Complaint: KIDNEY PAIN Time Seen by Provider: 03/09/21 15:24 Source of Information: Reports: Patient History Limitations: Reports: No Limitations - History of Present Illness INITIAL COMMENTS - FREE TEXT/NARRATIVE: HISTORY AND PHYSICAL: History of present illness: Patient is a 40-year-old female who presents to the emergency room with complaints of bilateral flank pain. She is concerned she has a bladder infection. On 03/03/21 the patient was hospitalized after surgery for retained placenta after second trimester loss, she was estimated 21 weeks gestation. Patient had a stillborn infant while at home, called the ambulance for excessive vaginal bleeding (no care). She had a D&C and was kept overnight for IV fluids and 2 units of packed red blood cells. Patient states that due to all the fluids she received in the hospital, she had bilateral lower extremity edema, was given IV lasix during her hospital stay. States she was not given a script for this for home. She mentions concern of feeling like she has "swelling everywhere". Patient denies any fever, chills, headache, change in vision, syncope or near syncope. Denies any chest pain, back pain, shortness of breath or cough. Denies any abdominal pain, nausea, vomiting, diarrhea, constipation or dysuria. Has not noted any blood in urine or stool. She states her vaginal bleeding is minimal, has no COMMERCIAL MANAGER concerns at this time. Patient has been eating and drinking appropriately. Review of systems: As per history of present illness and below otherwise all systems reviewed and negative. Past medical history: As per history of present illness and as reviewed below otherwise noncontributory. Surgical history: As per history of present illness and as reviewed below otherwise noncontributory. Social history: See social history for further information Family history: As per history of present illness and as reviewed below otherwise noncontributory. Physical exam: General: Well developed and well nourished 40 year old female. Alert and orientated x 3. Nontoxic in appearance and in no acute distress. Vital signs are stable and have been reviewed by me. Nursing notes were reviewed. HEENT: Atraumatic, normocephalic, pupils equal and reactive bilaterally, negative for conjunctival pallor or scleral icterus, mucous membranes moist, trachea midline. No drooling or trismus noted. No meningeal signs. No hot potato voice noted. Lungs: Clear to auscultation bilaterally. No wheezes, rales, or rhonchi. Chest nontender. Normal work of breathing, no accessory muscles used. Heart: S1S2, regular rate and rhythm without overt murmur, gallops, or rubs. No JVD. Abdomen: Soft, nondistended, nontender. Normoactive bowel sounds. Negative for masses or costovertebral tenderness. Pelvis: Stable nontender. Skin: Intact, warm, dry. No lesions or rashes noted. Hematologic: No petechiae or purpra. Mucosa appropriate color and normal nail bed color and refill. Extremities: Atraumatic, moves all extremities per self without difficulty or deficits, negative for cords or calf pain. Trace lower extremity edema bilaterally. Strong pedal and pretibia pulses. Cap refill less than 3 seconds. Neurovascular unremarkable. Neuro: Awake, alert, oriented. Cranial nerves II through XII unremarkable. Cerebellum unremarkable. Motor and sensory unremarkable throughout. Exam nonfocal. Psychiatric: Mood and affect are appropriate. Normal thought process. Answering questions appropriately. Notes: *This patient was seen and evaluated during the 2019 SARS-CoV-2 novel coronavirus pandemic period. Community viral transmission is ongoing at time of this encounter and the emergency department is operating under pandemic response procedures. Patient's H&H is low, vital signs are stable and is not symptomatic. CT shows no urinary tract stone or hydronephrosis identified. Expected mild uterine enlargement. Subtle hyperdensity in the region of the endocervical canal suggesting a small amount of hemorrhage within the endocervical canal. Hypodensity of blood within the left cardiac ventricle, suggesting anemia. She states she is lightly spotting, has no significant bleeding. Patient is taking the iron supplement that was prescribed. She is resting for repeat Lasix that was given while she was in the hospital as she "feels swollen and puffy all over". I have talked with the patient about today's findings, in addition to providing specific details for plan of care. Reassessment at the time of disposition demonstrates that the patient is in no acute distress. The patient is stable for discharge, counseling was provided and we discussed in great detail signs and symptoms that would prompt them to return to the Emergency Department. Medication, follow up and supportive care measures were reviewed and discussed. Voices understanding and is agreeable to plan of care. Denies any further questions or concerns at this time. Diagnostics: CBC, CMP, BNP, [employer]A [employer]: Lasix 20mg Impression: Anemia Edema Flank pain, bilateral Plan: 1. You were evaluated today on an emergent basis. Your hemiglobin is still low, please take the Iron supplements that were recommended by your OBGYN. Your other lab work is within normal limits. The CT shows no acute findings. 2. You can alternate Tylenol and ibuprofen as needed for pain and fever management. 3. We encourage you to follow up with your primary care provider and/or recommended specialist in the next few days for re-evaluation and further care/management. 4. If your symptoms should worsen, new symptoms develop or any of the signs and symptoms we discussed should arise please return to the emergency room or call 911 (if needed). Definitive disposition and diagnosis as appropriate pending reevaluation and review of above. flank Pain Score (Numeric/FACES): 5 - Related Data Allergies Allergy/AdvReac Type Severity Reaction Status Date / Time codeine Allergy Mild Nausea Verified 03/09/21 15:43 meperidine HCl [From Demerol] Allergy Fever Verified 03/09/21 15:43 naproxen Allergy Rash Verified 03/09/21 15:43 sumatriptan [From Imitrex] Allergy Anaphylactic Verified 03/09/21 15:43 Shock sumatriptan succinate Allergy Anaphylactic Verified 03/09/21 15:43 [From Imitrex] Shock Home Meds: Home Meds Buprenorphine HCl/Naloxone HCl [Buprenorphine-Nalox 8-2 mg Tab] 1 tab SL TID 03/03/21 [History] Sertraline [Zoloft] 200 mg PO BEDTIME 03/03/21 [History] Furosemide [Lasix] 20 mg PO DAILY #4 tablet 03/09/21 [Rx] Past Medical History - Past Health History Medical/Surgical History: Denies Medical/Surgical History Other HEENT History: Bad teeth Other Respiratory History: Reports 17 yr history of smoking cigarettes, current use 1/2 pack per day Other Gastrointestinal History: Heartburn in late treat with chewable TUMS Other COMMERCIAL MANAGER History: C- section and exploratory laproscopic Other Musculoskeletal History: Chronic low back pain, "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" Psychiatric History: Reports: Addiction Other Psychiatric History: Dependence on pain medications/opiates Oncologic (Cancer) History: Reports: Other (See Below) Other Oncologic History: melanoma on back--removed Other Dermatologic History: Excision of area to back 'melanoma' age 11 yrs - Infectious Disease History Infectious Disease History: Reports: Chicken Pox - Past Surgical History HEENT Surgical History: Reports: Adenoidectomy, Tonsillectomy Other HEENT Surgeries/Procedures: T & A age 7-8 yrs Respiratory Surgical History: Reports: None Female Surgical History: Reports: Section Other Female Surgeries/Procedures: Cryo therapy of cervix, Exploratory Laparoscopic surgery and 'ended up with incision", could not report what was done with this surgery - 3 yrs ago Social & Family History - Family History Family Medical History: No Pertinent Family History - Caffeine Use Caffeine Use: Reports: Energy Drinks, Soda ED ROS GENERAL - Review of Systems Review Of Systems: Comprehensive ROS is negative, except as noted in HPI. ED EXAM, GENERAL - Physical Exam Exam: See Below (See dictation) Course - Vital Signs Last Recorded V/S: Last Vital Signs Temp 98 F 03/09/21 15:40 Pulse 77 03/09/21 15:40 Resp BP 138/56 L 03/09/21 15:40 Pulse Ox 93 L 03/09/21 15:40 - Orders/Labs/Meds Labs: Laboratory Tests 03/09/21 03/09/21 03/09/21 Range/Units 15:50 16:25 16:25 WBC 5.04 (4.0-11.0) K/uL RBC 2.65 L (4.30-5.90) M/uL Hgb 7.5 L (12.0-16.0) g/dL Hct 24.0 L (36.0-46.0) % MCV 90.6 (80.0-98.0) fL MCH 28.3 (27.0-32.0) pg MCHC 31.3 (31.0-37.0) g/dL RDW Std Deviation 46.9 (28.0-62.0) fl RDW Coeff of Dalia 15 (11.0-15.0) % Plt Count 318 (150-400) K/uL MPV 10.10 (7.40-12.00) fL Neut % (Auto) 66.7 (48.0-80.0) % Lymph % (Auto) 22.6 (16.0-40.0) % Assumption % (Auto) 6.5 (0.0-15.0) % Eos % (Auto) 3.4 (0.0-7.0) % Baso % (Auto) 0.8 (0.0-1.5) % Neut # (Auto) 3.4 (1.4-5.7) K/uL Lymph # (Auto) 1.1 (0.6-2.4) K/uL Assumption # (Auto) 0.3 (0.0-0.8) K/uL Eos # (Auto) 0.2 (0.0-0.7) K/uL Baso # (Auto) 0.0 (0.0-0.1) K/uL Sodium 139 (136-145) mmol/L Potassium 4.5 (3.5-5.1) mmol/L Chloride 105 (98-107) mmol/L Carbon Dioxide 29.8 (21.0-32.0) mmol/L BUN 9 (7.0-18.0) mg/dL Creatinine 0.7 (0.6-1.0) mg/dL Est Cr Clr Drug Dosing 86.18 mL/min Estimated GFR (MDRD) > 60.0 ml/min Glucose 92 (74-106) mg/dL Calcium 8.1 L (8.5-10.1) mg/dL Total Bilirubin 0.2 (0.2-1.0) mg/dL AST 18 (15-37) IU/L ALT 21 (14-63) IU/L Alkaline Phosphatase 72 (46-116) U/L B-Natriuretic Peptide (<100) PG/ML Total Protein 6.0 L (6.4-8.2) g/dL Albumin 2.6 L (3.4-5.0) g/dL Globulin 3.4 (2.6-4.0) g/dL Albumin/Globulin Ratio 0.8 L (0.9-1.6) Urine Color YELLOW Urine Appearance CLEAR Urine pH 7.0 (5.0-8.0) Ur Specific Encinal 1.020 (1.001-1.035) Urine Protein NEGATIVE (NEGATIVE) mg/dL Urine Glucose (UA) NEGATIVE (NEGATIVE) mg/dL Urine Ketones NEGATIVE (NEGATIVE) mg/dL Urine Occult Blood LARGE H (NEGATIVE) Urine Nitrite NEGATIVE (NEGATIVE) Urine Bilirubin NEGATIVE (NEGATIVE) Urine Urobilinogen 0.2 (<2.0) EU/dL Ur Leukocyte Esterase NEGATIVE (NEGATIVE) Urine RBC 3-6 (0-2/HPF) Urine WBC 0-1 (0-5/HPF) Ur Epithelial Cells RARE (NONE-FEW) Urine Bacteria FEW (NEGATIVE) 03/09/21 Range/Units 16:25 WBC (4.0-11.0) K/uL RBC (4.30-5.90) M/uL Hgb (12.0-16.0) g/dL Hct (36.0-46.0) % MCV (80.0-98.0) fL MCH (27.0-32.0) pg MCHC (31.0-37.0) g/dL RDW Std Deviation (28.0-62.0) fl RDW Coeff of Dalia (11.0-15.0) % Plt Count (150-400) K/uL MPV (7.40-12.00) fL Neut % (Auto) (48.0-80.0) % Lymph % (Auto) (16.0-40.0) % Assumption % (Auto) (0.0-15.0) % Eos % (Auto) (0.0-7.0) % Baso % (Auto) (0.0-1.5) % Neut # (Auto) (1.4-5.7) K/uL Lymph # (Auto) (0.6-2.4) K/uL Assumption # (Auto) (0.0-0.8) K/uL Eos # (Auto) (0.0-0.7) K/uL Baso # (Auto) (0.0-0.1) K/uL Sodium (136-145) mmol/L Potassium (3.5-5.1) mmol/L Chloride (98-107) mmol/L Carbon Dioxide (21.0-32.0) mmol/L BUN (7.0-18.0) mg/dL Creatinine (0.6-1.0) mg/dL Est Cr Clr Drug Dosing mL/min Estimated GFR (MDRD) ml/min Glucose (74-106) mg/dL Calcium (8.5-10.1) mg/dL Total Bilirubin (0.2-1.0) mg/dL AST (15-37) IU/L ALT (14-63) IU/L Alkaline Phosphatase (46-116) U/L B-Natriuretic Peptide 124 H (<100) PG/ML Total Protein (6.4-8.2) g/dL Albumin (3.4-5.0) g/dL Globulin (2.6-4.0) g/dL Albumin/Globulin Ratio (0.9-1.6) Urine Color Urine Appearance Urine pH (5.0-8.0) Ur Specific Encinal (1.001-1.035) Urine Protein (NEGATIVE) mg/dL Urine Glucose (UA) (NEGATIVE) mg/dL Urine Ketones (NEGATIVE) mg/dL Urine Occult Blood (NEGATIVE) Urine Nitrite (NEGATIVE) Urine Bilirubin (NEGATIVE) Urine Urobilinogen (<2.0) EU/dL Ur Leukocyte Esterase (NEGATIVE) Urine RBC (0-2/HPF) Urine WBC (0-5/HPF) Ur Epithelial Cells (NONE-FEW) Urine Bacteria (NEGATIVE) Meds: Medications Discontinued Medications Generic Name Dose Route Start Last Admin Trade Name Freq PRN Reason Stop Dose Admin Furosemide 20 mg 03/09/21 18:32 Furosemide 20 Mg Tab PO 03/09/21 18:33 ONETIME ONE Departure - Departure Time of Disposition: 18:25 Disposition: Home, Self-Care 01 Clinical Impression: Anemia, Bilateral flank pain Edema Qualifiers: Edema type: unspecified Qualified Code(s): R60.9 - Edema, unspecified - Discharge Information Prescriptions: Furosemide [Lasix] 20 mg PO DAILY #4 tablet Instructions: Flank Pain, Adult, [id number] Referrals: Moisés Mars, [Primary Care Provider] - Additional Instructions: The following information is given to patients seen in the emergency department who are being discharged to home. This information is to outline your options for follow-up care. We provide all patients seen in our emergency department with a follow-up referral. The need for follow-up, as well as the timing and circumstances, are variable depending upon the specifics of your emergency department visit. If you don't have a primary care physician on staff, we will provide you with a referral. We always advise you to contact your personal physician following an emergency department visit to inform them of the circumstance of the visit and for follow-up with them and/or the need for any referrals to a consulting specialist. The emergency department will also refer you to a specialist when appropriate. This referral assures that you have the opportunity for follow-up care with a specialist. All of these measure are taken in an effort to provide you with optimal care, which includes your follow-up. Under all circumstances we always encourage you to contact your private physician who remains a resource for coordinating your care. When calling for follow-up care, please make the office aware that this follow-up is from your recent emergency room visit. If for any reason you are refused follow-up, please contact the [facility] Emergency Department at and asked to speak to the emergency department charge nurse. [facility] [address] [place] [id number] [place] [address] Thank you for choosing the [facility] emergency department in [place] for your medical needs today. It was a pleasure caring for you. Today you were seen in the emergency department for flank pain. 1. You were evaluated today on an emergent basis. Your hemaglobin is still low, please take the Iron supplements that were recommended by your OBGYN. Your other lab work is within normal limits. The CT shows no acute findings. 2. Increase your oral fluids you can alternate Tylenol and ibuprofen as needed for pain and fever management. 3. We encourage you to follow up with your primary care provider and/or recommended specialist in the next few days for re-evaluation and further care/management. 4. If your symptoms should worsen, new symptoms develop or any of the signs and symptoms we discussed should arise please return to the emergency room or call 911 (if needed). Sepsis Event Note (ED) - Focused Exam Vital Signs: Vital Signs Temp Pulse BP Pulse Ox 03/09/21 15:40 98 F 77 138/56 L 93 L
[2021-03-09 16:59] LABS: BLOOD UREA NITROGEN,BUN 9 mg/dL (7.0-18.0); CARBON DIOXIDE,CO2 29.8 mmol/L (21.0-32.0); CHLORIDE,CL 105 mmol/L (98-107); GLUCOSE RANDOM 92 mg/dL (74-106); POTASSIUM,K 4.5 mmol/L (3.5-5.1); SODIUM,NA 139 mmol/L (136-145)
--- NOTE | 2021-03-09 18:22 | CT ---
INDICATION: Bilateral flank pain, hematuria. Just released from hospital x 3 days ago for miscarriage, since then has been bleeding vaginally a lot. CT ABDOMEN AND PELVIS WITHOUT CONTRAST TECHNIQUE: Multidetector CT imaging was performed through the abdomen and pelvis without intravenous contrast administration. Coronal and sagittal reconstructions were generated. COMPARISON: 03/03/2021 pelvic ultrasound. FINDINGS: Lower chest: Lung bases are clear aside from trace atelectasis. There is subtle hypodensity of blood within the left ventricle, suggesting anemia. Liver: Hannah`s configuration of the right hepatic lobe, a normal variant. Gallbladder and bile ducts: No gallbladder wall thickening or calcified gallstones. No biliary dilation identified. Pancreas: Unremarkable. Spleen: Normal. Adrenals: No nodules or masses. Kidneys, ureters, and urinary bladder: No urinary tract stone identified. No hydronephrosis. Slight prominence of urinary bladder wall thickness due to nondistention. No bladder mass or definite pathologic wall thickening. Gastrointestinal tract: Normal caliber bowel without definite wall thickening or obstruction. The appendix is normal. Vascular structures: Normal for age. Peritoneum: No free air, abscess, or significant free fluid. Lymph nodes: No pathologically enlarged nodes identified. Reproductive organs: Expected mild uterine enlargement. Subtle hyperdensity in the region of the endocervical canal suggesting a small amount of blood. No large pelvic hematoma identified. Bones: Minor spinal degenerative changes. Incidental sacral Tarlov cysts. IMPRESSION: 1. No urinary tract stone or hydronephrosis identified. 2. Expected mild uterine enlargement. Subtle hyperdensity in the region of the endocervical canal suggesting a small amount of hemorrhage within the endocervical canal. 3. Hypodensity of blood within the left cardiac ventricle, suggesting anemia. OSMANI LUI MD [employer] Dictated by Glen Lui MD @ 03/09/2021 6:18:43 PM Dictated by: Glen Lui MD @ 03/09/2021 18:20:58 (Electronically Signed)
[2021-03-09] MEDS ORDERED: Furosemide 20 MG Tab PO ONE (18:32)
[2021-03-09 18:59] VITALS: BP 116/78; PULSE 67
== END 2021-03-09 19:00 | disposition home or self-care (01) ==
LOC: MW.ED 15:23
DX: R10.9 Unspecified abdominal pain (principal); D64.9 Anemia, unspecified; R60.0 Localized edema; F17.210 Nicotine dependence, cigarettes, uncomplicated; Z88.5 Allergy status to narcotic agent; Z88.8 Allergy status to other drugs, medicaments and biological substances
CPT/HCPCS: 36415; 74176; 80053; 81001; 83880; 85025; 99285; A9270; 99284